=== PATIENT | male | born 1940 | race Caucasian/White ===

== ENCOUNTER → 2021-06-13 13:38 | Outpatient (BNVA) | payer MEDICARE, SELFPAY | PROVIDERS: PCP Internal Medicine; Referring Provider Internal Medicine; Visit Provider Surgery | DX: K40.90 Unilateral inguinal hernia, without obstruction or gangrene, not specified as recurrent (principal); K42.9 Umbilical hernia without obstruction or gangrene | CPT/HCPCS: 99202 ==

== ENCOUNTER 2021-06-29 07:19 | Day surgery (SDC) | payer MEDICARE, SELFPAY ==
[2021-06-23 13:19] VITALS: BMI 26.2
--- NOTE | 2021-06-29 07:52 | HO.ANESPROP2 ---
[facility] Active Problems Active Problems: All Active Problems (Updated 06/23/21 @ 13:18 by Mackenzie Amaro RN) Right inguinal hernia (Acute) Umbilical hernia (Acute) Past Medical History Medical History (Updated 06/23/21 @ 13:18 by Mackenzie Amaro RN) COVID-19 vaccine series completed Depression Elevated cholesterol History of carotid artery dissection HTN (hypertension) Stroke Functional capacity: independent ambulation Family History Family history of problems with anesthesia: No Surgical History Surgical History H/O colonoscopy History of ankle surgery History of back surgery History of open reduction and internal fixation (ORIF) procedure Hx of cataract extraction Hx of left inguinal hernia repair S/p bilateral carotid endarterectomy History of Problems with Anesthesia: No Social History Social History Are you a primary home care coordinator to a significant other at home: No Do you presently have visiting nurse or other home services: No Patient Tobacco Use Status: Former Tobacco user Quit Date: age 50 Tobacco use type: Cigarette Use of substances other than those prescribed or required for medical reasons: No Have you been hit, kicked, punched, or otherwise hurt by someone within the past year? If so, by whom?: No Advance Directives: No Advance Directives Information Provided: Yes Advance Directives on File: No Recently lost weight without trying: No Eating poorly because of decreased appetite: No Nutrition Risks: Surgical patient >75years Poor oral hygiene: No Meds Allergies Allergy/AdvReac Type Severity Reaction Status Date / Time bee pollen [BEE STINGS] Allergy Intermediate PASSES OUT Unverified 06/13/21 13:55 Active Medications: Current Medications Lactated Ringer's (Lr) 1,000 mls @ 100 mls/hr IVCONT .Q10H YOLA Cefazolin Sodium/Dextrose (Ancef) 2 gm in 50 mls @ 100 mls/hr IV PREOP ONE Stop: 06/29/21 08:11 Home Medications Medication Instructions Recorded Confirmed Last Taken Type aspirin 81 mg tablet,delayed 81 mg PO DAILY 06/13/21 06/23/21 06/27/21 History release atenolol 25 mg tablet 25 mg PO DAILY 06/13/21 06/23/21 06/29/21 History cholecalciferol (vitamin D3) 125 125 mcg PO DAILY 06/13/21 06/23/21 Unknown History mcg (5,000 unit) capsule citalopram 20 mg tablet 20 mg PO DAILY 06/13/21 06/23/21 06/29/21 History diphenhydramine HCl 25 mg capsule 25 mg PO BEDTIME PRN 06/13/21 06/23/21 Unknown History (Benadryl) hydrochlorothiazide 25 mg tablet 25 mg PO DAILY 06/13/21 06/23/21 Unknown History krill oil 500 mg capsule 500 mg PO DAILY 06/13/21 06/23/21 Unknown History simvastatin 40 mg tablet 40 mg PO BEDTIME 06/13/21 06/23/21 Unknown History Exam Exam Date and Time: June 29, 2021 0752 Height,Weight and Vital Signs: Height 5 ft 11 in Weight 85.275 kg Assessment and Plan Final Anesthetic Review Family History of Problems with Anesthesia: No History of Problems with Anesthesia: No
[2021-06-29 07:58] VITALS: BP 173/67; PULSE 55; RESP 16; TEMP 36.3; O2SAT 98
[2021-06-29] MEDS: Lactated Ringers 1,000 ML 100 ML IVCONT (08:23)
--- NOTE | 2021-06-29 08:44 | MHC.SHP ---
Pre-Procedural Eval Section A Date of Service: 06/29/21 The patient is an INPATIENT: No Changes since office visit: Yes Patient answered all questions; No Cold of Flu in the past 2 weeks, No New Medical Problems and No Changes in Medication The History & Physical has been completed within 30 days and I have reviewed it.: Yes Section B Chief Complaint: inguinal and umbilical hernia with mesh Allergies: Allergies Allergy/AdvReac Type Severity Reaction Status Date / Time bee pollen [BEE STINGS] Allergy Intermediate PASSES OUT Verified 06/29/21 08:24 Plan Diagnosis/Plan: Unchanged I have reviewed the history and physical and performed a pertinent physical examination on my patient. No changes have occurred unless specified.
--- NOTE | 2021-06-29 10:02 | P.CONAN_ITS ---
[facility] Active Problems Active Problems: All Active Problems (Updated 06/23/21 @ 13:18 by Mackenzie Amaro RN) Right inguinal hernia (Acute) Umbilical hernia (Acute) Past Medical History Medical History (Updated 06/23/21 @ 13:18 by Mackenzie Amaro RN) COVID-19 vaccine series completed Depression Elevated cholesterol History of carotid artery dissection HTN (hypertension) Stroke Functional capacity: independent ambulation Family History Family history of problems with anesthesia: No Surgical History Surgical History H/O colonoscopy History of ankle surgery History of back surgery History of open reduction and internal fixation (ORIF) procedure Hx of cataract extraction Hx of left inguinal hernia repair S/p bilateral carotid endarterectomy History of Problems with Anesthesia: No Social History Social History Are you a primary animal care specialist to a significant other at home: No Do you presently have visiting nurse or other home services: No Patient Tobacco Use Status: Former Tobacco user Quit Date: age 50 Tobacco use type: Cigarette Use of substances other than those prescribed or required for medical reasons: No Have you been hit, kicked, punched, or otherwise hurt by someone within the past year? If so, by whom?: No Advance Directives: No Advance Directives Information Provided: Yes Advance Directives on File: No Recently lost weight without trying: No Eating poorly because of decreased appetite: No Nutrition Risks: Surgical patient >75years Poor oral hygiene: No Meds Allergies Allergy/AdvReac Type Severity Reaction Status Date / Time bee pollen [BEE STINGS] Allergy Intermediate PASSES OUT Verified 06/29/21 08:24 Active Medications: Current Medications Fentanyl (Fentanyl Citrate/Pf 100 Mcg/2 Ml Vial) 25 mcg IVPUSH Q5M PRN; Protocol PRN Reason: Pain, Moderate (Pain Scale 4-6 Lactated Ringer's (Lr) 1,000 mls @ 100 mls/hr IVCONT .Q10H YOLA Last Admin: 06/29/21 08:23 Dose: 100 mls/hr Documented by: Ketorolac Tromethamine (Ketorolac Tromethamine 30 Mg/Ml Vial) 15 mg IVPUSH ONCE ONE Stop: 06/29/21 10:00 Ondansetron HCl (Ondansetron Hcl 4 Mg/2 Ml Vial) 4 mg IVPUSH ONCE PRN PRN Reason: Nausea and Vomiting Oxycodone HCl (Oxycodone Hcl Immed Release 5 Mg Tablet) 5 mg PO ONCE PRN PRN Reason: Pain, Severe (Pain Scale 7-10) Home Medications Medication Instructions Recorded Confirmed Last Taken Type aspirin 81 mg tablet,delayed 81 mg PO DAILY 06/13/21 06/23/21 06/27/21 History release atenolol 25 mg tablet 25 mg PO DAILY 06/13/21 06/23/21 06/29/21 History cholecalciferol (vitamin D3) 125 125 mcg PO DAILY 06/13/21 06/23/21 Unknown History mcg (5,000 unit) capsule citalopram 20 mg tablet 20 mg PO DAILY 06/13/21 06/23/21 06/29/21 History diphenhydramine HCl 25 mg capsule 25 mg PO BEDTIME PRN 06/13/21 06/23/21 Unknown History (Benadryl) hydrochlorothiazide 25 mg tablet 25 mg PO DAILY 06/13/21 06/23/21 Unknown History krill oil 500 mg capsule 500 mg PO DAILY 06/13/21 06/23/21 Unknown History simvastatin 40 mg tablet 40 mg PO BEDTIME 06/13/21 06/23/21 Unknown History Exam Exam Date and Time: June 29, 2021 1002 Height,Weight and Vital Signs: Height 5 ft 11 in Weight 85.275 kg Last Vital Signs Temp 97.3 F 06/29/21 07:58 Pulse 55 06/29/21 07:58 Resp 16 06/29/21 07:58 BP 173/67 H 06/29/21 07:58 Pulse Ox 98 06/29/21 07:58 Airway Mallampati Class: III TM Dist: >3cm Neck ROM: Full Heart: RRR Lungs: CTA Assessment and Plan Final Anesthetic Review Family History of Problems with Anesthesia: No History of Problems with Anesthesia: No Final Preanesthetic Review: No Changes in Pt Med Stat, Meds/Allgs Chart Reviewed, Consent Obtained/Reviewed and Anes Risks/Benef Reviewed Patient Risk: Low Procedure Risk: Low Anesthetic Plan Anesthetic Plan: GA Disposition: Standard PACU
--- NOTE | 2021-06-29 10:19 | W.PM.OPN ---
Operative Note Operative Note Date of Service: 06/29/21 Narrative: Preoperative diagnosis: Right inguinal hernia, umbilical hernia Postoperative diagnosis: Same Procedure: Repair of right inguinal hernia and umbilical hernia with mesh Surgeon: Estevan Matthews MD Cabin Worker: Roxann Story PA-C Anesthesia: General LMA Indications for procedure: 80-year-old male patient presenting with a painful lump in the right groin also noted to have a painful lump in the umbilicus. Both of an increasing in size. Patient is requesting repair of both. Operative findings: Indirect right inguinal hernia, reducible umbilical hernia. Specimen: Hernia sac right inguinal hernia Estimated blood loss: 2 mL Complications: None Procedure details: Patient was brought to the OR and placed in a supine position. After administering general anesthesia the patient's abdomen was prepped with ChloraPrep and draped in a sterile fashion. A surgical time-out was called the consent confirmed. Patient received preoperative antibiotics and Venodyne boots were in place. Local anesthesia consisting of 0.25% Sensorcaine was infiltrated over the right inguinal ligament. Incision was then made over the ligament carried out through subcutaneous tissue, past Ara's fashion up to the external oblique aponeurosis. Additional local was infiltrated below the aponeurosis. External oblique aponeurosis was then incised with a scalpel wide with the Metzenbaum scissors. Spermatic cord was then dissected free from the surrounding inguinal canal and retracted with a [place] drain. A small direct inguinal hernia was identified and reduced. Fibers of the cremasteric muscle were then in a small indirect hernia was also identified. The sac was dissected down to the internal ring. The sac was opened and contents reduced. Sac was then ligated with a 0 Polysorb suture. Sac was then excised and sent to pathology for further examination. Attention was then directed to the direct floor. Fibers of the internal oblique and transversalis aponeurosis were then incised. Preperitoneal space was then entered. This was then widened with an open Ray-Sharon sponge. A large PHS mesh was obtained in the circular underlay deployed within the preperitoneal space. The overlay was then secured to the pubic tubercle, conjoined tendon, and shelving edge using interrupted 0 Polysorb sutures. A slit was made in the mesh at the internal ring in the mesh wrapped around the spermatic cord at the internal ring. This was then secured to the shelving edge using a 0 Polysorb suture. The wrap was tightened up to allow passage only the index finger tip. Wounds were then irrigated with saline solution. 5.5 mL of Zenrelef was then infiltrated over the mesh. The external oblique aponeurosis was then closed using a running 2 0 Polysorb suture. An additional 5 mL of Zenrelef was then applied. Ara's fascia and dermis were then reapproximated using interrupted 3-0 Polysorb sutures skin was then closed using a running subcuticular 4-0 Polysorb suture. Attention was then directed to the umbilicus, where a curvilinear incision was made over the umbilicus oriented transversely. This was carried out through subcutaneous tissue and up to the hernia sac. The hernia sac was then dissected off the umbilical skin. The sac was dissected circumferentially along the fascial edge and reduced into the abdominal cavity. A preperitoneal space was then bluntly dissected. A medium circular Ventralex mesh was then obtained in the poised within the preperitoneal space. This was secured to the 4 quadrants using a [id number] 1. Tycron suture. The fascia was then closed over the mesh using [id number] Tycron sutures. Wounds were then irrigated with saline solution. 1 mL of Zenrelef was then applied over the fascia. Umbilical skin was reattached to the fascia using a 3-0 Polysorb suture. Dermis was reapproximated using interrupted 3-0 Polysorb sutures. Skin was closed using a running subcuticular 4-0 Polysorb suture. Sterile dressings consisting of Steri-Strips, 2 x 2 gauze, and Tegaderm were then applied. The patient tolerated the procedure well. Sponge, instrument, and needle counts reported as correct. The patient was transferred to PACU in stable condition.
[2021-06-29 10:28] VITALS: BP 128/48; PULSE 61; RESP 16; TEMP 36.8; O2SAT 96
[2021-06-29 10:33] VITALS: BP 91/63; PULSE 56; RESP 16; O2SAT 96
[2021-06-29 10:38] VITALS: BP 132/45; PULSE 57; RESP 16; O2SAT 96
[2021-06-29 10:43] VITALS: BP 111/63; PULSE 58; RESP 16; O2SAT 96
[2021-06-29 10:58] VITALS: BP 151/70; PULSE 58; RESP 16; TEMP 36.4; O2SAT 95
== END 2021-06-29 11:45 | disposition home or self-care (01) ==
PROVIDERS: PCP Internal Medicine; Visit Provider Surgery
PROC: (CPT 49505; principal; 2021-06-29 09:10)
PROC: (CPT 49505; 2021-06-29 09:10)
DX: K40.90 Unilateral inguinal hernia, without obstruction or gangrene, not specified as recurrent (principal); K42.9 Umbilical hernia without obstruction or gangrene; Z86.73 Personal history of transient ischemic attack (TIA), and cerebral infarction without residual deficits; Z79.82 Long term (current) use of aspirin; Z98.62 Peripheral vascular angioplasty status; Z79.899 Other long term (current) drug therapy; Z87.891 Personal history of nicotine dependence
CPT/HCPCS: 49505; 49585; 88302; C1781; C9399; J0690; J1100; J2250; J2405; J3010

== ENCOUNTER → 2021-07-08 09:48 | Outpatient (BNVA) | payer MEDICARE, SELFPAY | PROVIDERS: PCP Internal Medicine; Referring Provider Internal Medicine; Visit Provider Surgery | DX: Z48.815 Encounter for surgical aftercare following surgery on the digestive system (principal); Z87.19 Personal history of other diseases of the digestive system | CPT/HCPCS: 99212 ==

== ENCOUNTER 2022-12-29 08:45 | Outpatient (AMB) | payer MEDICARE, SELFPAY ==
[2022-12-29 08:48] VITALS: BP 134/58; PULSE 61; O2SAT 96; BMI 26.5
--- NOTE | 2022-12-29 08:48 | A.OFFPC_ITS ---
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 Allergies bee pollen [BEE STINGS] Allergy (Intermediate, Verified 12/29/22 08:53) PASSES OUT Medication List - Last Reconciled 12/29/22 by Olivia Moon MD aspirin 81 mg PO DAILY atenolol 25 mg PO DAILY cholecalciferol (vitamin D3) 125 mcg PO DAILY citalopram 20 mg PO DAILY diphenhydramine HCl (Benadryl) 25 mg PO BEDTIME PRN hydrochlorothiazide 25 mg PO DAILY krill oil 500 mg PO DAILY simvastatin 40 mg PO BEDTIME Tobacco use date assessed: 12/29/22 Fall risk assessment: No Falls in past year Last assessed Fall Risk: 12/29/22 Dental Screening Dental Screen Date: 12/29/22 Did you have a dental visit in the last 12 months?: Yes Did you have a dental problem in the last 6 months where you did not have access to dental care?: No Was dental information given to patient?: Patient has dentist 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 Past medical history includes hypertension hyperlipidemia. [facility] and has an appointment in 1 month for fasting blood work and visit. [facility] Medical History (Updated 12/29/22 @ 09:09 by Olivia Moon MD) COVID-19 vaccine series completed Depression Elevated cholesterol HTN (hypertension) History of carotid artery dissection Stroke Surgical History (Updated 12/29/22 @ 09:09 by Olivia Moon MD) Hx of left inguinal hernia repair H/O colonoscopy Hx of cataract extraction History of open reduction and internal fixation (ORIF) procedure S/p bilateral carotid endarterectomy History of back surgery History of ankle surgery Family History (Updated 12/29/22 @ 08:56 by Audelia Bautista Thelma) Father No problems noted. Mother No problems noted. Social History Housing: House Are you a primary care services manager to a significant other at home: No Do you presently have visiting nurse or other home services: No Patient Tobacco Use Status: Former Tobacco user Quit Date: age 50 Tobacco use type: Cigarette e-Cigarette/Vaping Use: Never Used Current occupational status: retired Cognitive needs: No Hearing needs: No Vision needs: Yes Questionnaire PHQ-9 Over the last 2 weeks, how often have you been bothered by any of the following problems? 1. Little interest or pleasure in doing things: not at all 2. Feeling down, depressed, or hopeless: not at all 3. Trouble falling or staying asleep, or sleeping too much: not at all 4. Feeling tired or having little energy: not at all 5. Poor appetite or overeating: not at all 6. Feeling bad about yourself - or that you are a failure or have let yourself or your family down: not at all 7. Trouble concentrating on things, such as reading the newspaper or watching television: not at all 8. Moving or speaking so slowly that other people could have noticed. Or the opposite - being so fidgety or restless that you have been moving around a lot more than usual: not at all 9. Thoughts that you would be better off or of hurting yourself in some way : not at all Total score: 0 Depression Screening Interpretation: Negative Depression Screening Done: Yes Source: Developed by Drs. Nelson Campbell, Dina Booker, Chris Nash and colleagues, with an educational flaquita from [employer]. Thrive Questionnaire Date Thrive assessed: 12/29/22 I am a: Patient What is your living situation today?: I have a steady place to live Within the past 12 months, did the food you bought not last and you didn't have the money to get more?: Never true Within the past 12 months, did you worry whether your food would run out before you got money to buy more?: Never true Do you have trouble paying for medicines?: No Do you have trouble getting transportation to medical appointments?: No Do you have trouble paying your heating and electricity bill?: No Do you have trouble taking care of your child, family member or friend?: No Do you have trouble with day-to-day activities such as bathing, preparing meals, shopping, managing finances, etc.?: No Are you currently unemployed and looking for a job?: No Are you interested in more education?: No Please select the resources that you would like help with: None AUDIT C Alcohol Use Questionnaire (AUDIT-C) 1. How often do you have a drink containing alcohol?: 4 or more times a week 2. How many drinks containing alcohol do you have on a typical day when you are drinking?: 1 or 2 3. How often do you have six or more drinks on one occasion?: Never Total Score: 4 CAMI-7 AMB Questionnaire CAMI-7 Date CAMI - 7 assessed: 12/29/22 Feeling nervous, anxious, or on edge: 0 = Not at all Not being able to stop or control worryin = Not at all Worrying too much about different things: 0 = Not at all Trouble relaxin = Not at all Being so restless that it is hard to sit still: 0 = Not at all Becoming easily annoyed or irritable: 0 = Not at all Feeling afraid as if something awful might happen: 0 = Not at all Total CAMI-7 score (0-4 normal; 5-9 mild; 10-14 moderate; 15-21 severe): 0 Source: Developed by Drs. Nelson Campbell, Dina Booker, Chris Nash and colleagues, with an educational flaquita from [employer]. Review of Systems Const All systems reviewed & are unremarkable except as noted in HPI and below Reports no additional complaints Eyes Reports no additional complaints ENT Reports no additional complaints Card Reports no additional complaints Resp Reports no additional complaints GI Reports no additional complaints Reports no additional complaints Musc Reports no additional complaints Physical exam (Primary Care) Vital Signs: Last Vital Signs Pulse 61 12/29/22 08:48 BP 134/58 L 12/29/22 08:48 Pulse Ox 96 12/29/22 08:48 Oxygen Delivery Method Room Air 12/29/22 08:48 BMI result Body Mass Index 26.5 Tobacco/Smoking Status: Tobacco use Status Tobacco use date assessed 12/29/22 12/29/22 08:59 Patient Tobacco Use Status Former Tobacco user 12/29/22 08:51 Tobacco use type Cigarette 12/29/22 08:51 e-Cigarette/Vaping Use Never Used 12/29/22 08:59 PHQ-9: PHQ-9 Score PHQ-9: Total score 0 12/29/22 08:59 Depression Screening Interpretation: Negative Thrive Assessment: Date of Thrive Assessment Date Thrive assessed 12/29/22 12/29/22 08:59 Const General: no acute distress HENMT Head: Yes normal to inspection Ears: hearing grossly normal bilaterally Face and sinus: Yes normal facial exam Throat: Yes posterior oropharynx normal Neck Neck: Yes supple Resp Effort & Inspection: normal respiratory effort Auscultation: clear to auscultation bilaterally Cardio Rhythm: regular rhythm Heart sounds: S1 normal heart sound present and S2 normal heart sound present GI Inspection: Yes normal to inspection Palpation (GI): Soft to palpation Percussion: Yes normal to percussion Auscultation: normal bowel sounds Assessment and Plan Assessment & Plan (1) Status post carotid endarterectomy: Comment: 2011Dr. Barreto Code(s): Z98.890 - Other specified postprocedural states Plan: Follow-up with [facility] annually (2) HTN (hypertension): Code(s): I10 - Essential (primary) hypertension Plan: Continue current medications (3) Elevated cholesterol: Code(s): E78.00 - Pure hypercholesterolemia, unspecified Plan: Continue simvastatin, follow-up in 6 months with a fasting labs before (4) Screening for colon cancer: Comment: negative Cologuard 2021 by [place] Code(s): Z12.11 - Encounter for screening for malignant neoplasm of colon Orders: Orders Complete Blood Count Auto Diff 6 Months E78.00 - Pure hypercholesterolemia, unspecified, I10 - Essential (primary) hypertension Vitamin D 25-OH Total 6 Months E78.00 - Pure hypercholesterolemia, unspecified, I10 - Essential (primary) hypertension Comprehensive [place]. Panel Fast 6 Months E78.00 - Pure hypercholesterolemia, unspecified, I10 - Essential (primary) hypertension Lipid Panel 6 Months E78.00 - Pure hypercholesterolemia, unspecified, I10 - Essential (primary) hypertension PSA,Total (Free>4and<10) 6 Months E78.00 - Pure hypercholesterolemia, unspecified, I10 - Essential (primary) hypertension Coding Level of Care Code New Pt Level 4 (15345) Diagnoses Status post carotid endarterectomy Z98.890 HTN (hypertension) I10 Elevated cholesterol E78.00 Screening for colon cancer Z12.11
== END 2022-12-29 10:20 | disposition home or self-care (01) ==
PROVIDERS: Visit Provider Internal Medicine
DX: Z98.890 Other specified postprocedural states (principal); I10 Essential (primary) hypertension; E78.00 Pure hypercholesterolemia, unspecified; Z12.11 Encounter for screening for malignant neoplasm of colon
CPT/HCPCS: 99204

== ENCOUNTER 2023-04-06 09:10 | Outpatient (REF) | payer MEDICARE, SELFPAY ==
[2023-04-06 11:45] LABS: MANUAL DIFF FLAG NO
[2023-04-06 11:47] LABS: Basophils Absolute Auto 0.1 X10*3/uL (0.0-0.2); Basophils Percent Auto 0.9 % (0-2); Eosinophils Absolute Auto 0.2 X10*3/uL (0.0-0.4); Eosinophils Percent Auto 3.6 % (0-4); Hematocrit 40.7 % (42.0-52.0); Hemoglobin 14.3 g/dl (14.0-18.0); Imm Gran Abs Auto 0.03 X10*3/uL (0.00-0.03); Imm Gran Pct Auto 0.5 % (0.0-0.4); Lymphocytes Absolute Auto 1.7 X10*3/uL (1.2-4.9); Lymphocytes Percent Auto 26.3 % (20-40); Mean Corpuscular HGB Conc 35.1 g/dl (31.0-36.0); Mean Corpuscular Hemoglobin 33.3 pg (27.0-33.0); Mean Corpuscular Volume 94.7 fL (80.0-98.0); Mean Platelet Volume 10.6 fL (9.4-12.4); Monocytes Absolute Auto 0.7 X10*3/uL (0.1-1.2); Monocytes Percent Auto 10.9 % (2-11); Neutrophils Absolute Auto 3.7 x10*3/uL (2.0-8.3); Neutrophils Percent Auto 57.8 % (45-73); Platelet Count 179 X10*3/uL (160-400); Red Cell Distribution Width 12.1 % (11.0-16.0); White Blood Count 6.3 X10*3/uL (4.8-10.8)
[2023-04-06 12:21] LABS: Alanine Aminotransferase 33 U/L (0-40); Alkaline Phosphatase 81 U/L (39-117); Anion Gap 12 (12-20); Aspartate Amino Transferase 34 U/L (5-37); Bilirubin Total 0.9 mg/dL (0.0-1.0); Blood Urea Nitrogen 22 mg/dL (9-16); Calcium 9.1 mg/dL (8.4-10.2); Carbon Dioxide 28 mmol/L (22-29); Chloride 100 mmol/L (96-108); Cholesterol 140 mg/dL (<200); Estimated Glomerular Filt Rate > 60; Glucose Fasting 91 mg/dL (60-99); HDL Cholesterol 55 mg/dL (>40); LDL Cholesterol Calculated 62 mg/dL (<100); Potassium 3.6 mmol/L (3.3-5.1); Sodium 136 mmol/L (135-145); Total Protein 7.2 g/dL (6.5-8.0); Triglycerides 119 mg/dL (<150)
== END 2023-04-06 09:11 | disposition home or self-care (01) ==
LOC: HO.HMGCLDS 09:10
PROVIDERS: PCP Internal Medicine; Visit Provider Internal Medicine
DX: I10 Essential (primary) hypertension (principal); E78.00 Pure hypercholesterolemia, unspecified; Z98.890 Other specified postprocedural states
CPT/HCPCS: 36415; 80053; 80061; 85025

== ENCOUNTER 2023-04-09 13:07 | Outpatient (AMB) | payer MEDICARE, SELFPAY ==
[2023-04-09 13:54] VITALS: BP 136/64; PULSE 53; O2SAT 97; BMI 26.2
--- NOTE | 2023-04-09 13:54 | MHC.PC.OV ---
Vital Signs 04/09/23 13:54 Height 5 ft 11 in Weight 188 lb BMI 26.2 BP 136/64 Blood Pressure Location Rt brachial Position Sitting Pulse 53 Pulse Source Pulse Oximeter Pulse Oximetry (%) 97 Oxygen Delivery Method Room Air Intake Visit Reasons: [facility], right rotator cuff repair Intake Note: Pt is here today for a pre op visit. Pt is having R shoulder surgery for rotator cuff repair on 04/24/23 at [facility]. Allergies bee pollen [BEE STINGS] Allergy (Intermediate, Verified 04/09/23 14:04) PASSES OUT Medication List - Last Reconciled 04/09/23 by Olivia Moon MD aspirin 81 mg PO DAILY atenolol 25 mg PO DAILY cholecalciferol (vitamin D3) 125 mcg PO DAILY citalopram 20 mg PO DAILY diphenhydramine HCl (Benadryl) 25 mg PO BEDTIME PRN hydrochlorothiazide 25 mg PO DAILY krill oil 500 mg PO DAILY simvastatin 40 mg PO BEDTIME Tobacco use date assessed: 04/09/23 Fall risk assessment: No Falls in past year Last assessed Fall Risk: 04/09/23 Dental Screening Dental Screen Date: 04/09/23 Did you have a dental visit in the last 12 months?: Yes Did you have a dental problem in the last 6 months where you did not have access to dental care?: No Was dental information given to patient?: Patient has dentist HPI [facility], right rotator cuff repair HPI Details Pt presents for preop for R shoulder surgery. HTN and hyperlipid, stable on meds. Patient exercises on elliptical 5 times a week and denies exercise induced chest pain shortness for breath or palpitations. [facility] Medical History (Updated 04/09/23 @ 15:15 by Olivia Moon MD) COVID-19 vaccine series completed Depression Elevated cholesterol HTN (hypertension) History of carotid artery dissection Stroke Surgical History (Updated 12/29/22 @ 09:09 by Olivia Moon MD) Hx of left inguinal hernia repair H/O colonoscopy Hx of cataract extraction History of open reduction and internal fixation (ORIF) procedure S/p bilateral carotid endarterectomy History of back surgery History of ankle surgery Family History (Updated 12/29/22 @ 08:56 by Audelia Bautista [facility]) Father No problems noted. Mother No problems noted. Social History Housing: House Are you a primary career transition specialist to a significant other at home: No Do you presently have visiting nurse or other home services: No Patient Tobacco Use Status: Former Tobacco user Quit Date: age 50 Tobacco use type: Cigarette e-Cigarette/Vaping Use: Never Used Current occupational status: retired Cognitive needs: No Hearing needs: No Vision needs: Yes Questionnaire Thrive Questionnaire Date Thrive assessed: 12/29/22 AUDIT C Alcohol Use Questionnaire (AUDIT-C) 1. How often do you have a drink containing alcohol?: 4 or more times a week 2. How many drinks containing alcohol do you have on a typical day when you are drinking?: 1 or 2 3. How often do you have six or more drinks on one occasion?: Never Total Score: 4 CAMI-7 AMB Questionnaire CAMI-7 Date CAMI - 7 assessed: 12/29/22 Source: Developed by Drs. Nelson Campbell, Dina Booker, Chris Nash and colleagues, with an educational flaquita from [employer]. Review of Systems Const All systems reviewed & are unremarkable except as noted in HPI and below Reports no additional complaints Eyes Reports no additional complaints ENT Reports no additional complaints Card Reports no additional complaints Resp Reports no additional complaints GI Reports no additional complaints Reports no additional complaints Physical exam (Primary Care) Vital Signs: Last Vital Signs Pulse 53 04/09/23 13:54 BP 136/64 04/09/23 13:54 Pulse Ox 97 04/09/23 13:54 Oxygen Delivery Method Room Air 04/09/23 13:54 BMI result Body Mass Index 26.2 Tobacco/Smoking Status: Tobacco use Status Tobacco use date assessed 04/09/23 04/09/23 14:05 Patient Tobacco Use Status Former Tobacco user 04/09/23 14:05 Tobacco use type Cigarette 04/09/23 13:55 e-Cigarette/Vaping Use Never Used 04/09/23 13:55 Thrive Assessment: Date of Thrive Assessment Date Thrive assessed 12/29/22 04/09/23 13:55 Const General: no acute distress HENMT Head: Yes normal to inspection General nose exam: Normal external nose present Eyes General: appearance normal, both eyes and all related structures Neck Neck: Yes no lymphadenopathy and Yes supple Resp Effort & Inspection: normal respiratory effort Auscultation: clear to auscultation bilaterally Cardio Rhythm: regular rhythm Heart sounds: S1 normal heart sound present and S2 normal heart sound present GI Inspection: Yes normal to inspection Palpation (GI): Soft to palpation Percussion: Yes normal to percussion Auscultation: normal bowel sounds Extrem General: Yes no clubbing, cyanosis or edema Assessment and Plan Assessment & Plan (1) HTN (hypertension): Code(s): I10 - Essential (primary) hypertension Plan: Continue current medications EKG showed normal sinus rhythm bradycardia at 51, with first-degree AV block no ST-T changes. (2) Rotator cuff tear arthropathy of right shoulder: Code(s): M75.101 - Unspecified rotator cuff tear or rupture of right shoulder, not specified as traumatic; M12.811 - Other specific arthropathies, not elsewhere classified, right shoulder Plan: Patient is medically cleared for right shoulder surgery. Orders: Orders AMB EKG-In Office Today I10 - Essential (primary) hypertension, Z98.890 - Other specified postprocedural states Medications: New atenolol 25 mg PO DAILY 90 tabs 3RF citalopram 20 mg PO DAILY 90 tabs 3RF Coding Level of Care Code Est Pt Level 3 (20363) Diagnoses HTN (hypertension) I10 Rotator cuff tear arthropathy of right shoulder M75.101; M12.811
== END 2023-04-09 15:16 | disposition home or self-care (01) ==
PROVIDERS: PCP Internal Medicine; Visit Provider Internal Medicine
DX: I10 Essential (primary) hypertension (principal); M75.101 Unspecified rotator cuff tear or rupture of right shoulder, not specified as traumatic; M12.811 Other specific arthropathies, not elsewhere classified, right shoulder
CPT/HCPCS: 99213

== ENCOUNTER 2023-05-17 13:37 | Outpatient (REF) | payer MEDICARE, SELFPAY ==
[2023-05-17 16:25] LABS: Anion Gap 15 (12-20); Blood Urea Nitrogen 19 mg/dL (9-16); Calcium 9.3 mg/dL (8.4-10.2); Carbon Dioxide 25 mmol/L (22-29); Chloride 102 mmol/L (96-108); Estimated Glomerular Filt Rate > 60; Glucose Random 89 mg/dL (60-115); Potassium 4.1 mmol/L (3.3-5.1); Sodium 138 mmol/L (135-145)
== END 2023-05-17 13:38 | disposition home or self-care (01) ==
LOC: HO.HMGCLDS 13:37
PROVIDERS: PCP Internal Medicine; Visit Provider Internal Medicine
DX: R06.9 Unspecified abnormalities of breathing (principal)
CPT/HCPCS: 36415; 80048

== ENCOUNTER 2023-06-22 07:41 | Outpatient (REF) | payer MEDICARE, SELFPAY ==
[2023-06-22 10:33] LABS: MANUAL DIFF FLAG NO
[2023-06-22 10:47] LABS: Basophils Absolute Auto 0.1 X10*3/uL (0.0-0.2); Basophils Percent Auto 0.9 % (0-2); Eosinophils Absolute Auto 0.3 X10*3/uL (0.0-0.4); Eosinophils Percent Auto 4.1 % (0-4); Hematocrit 42.4 % (42.0-52.0); Hemoglobin 14.1 g/dl (14.0-18.0); Imm Gran Abs Auto 0.03 X10*3/uL (0.00-0.03); Imm Gran Pct Auto 0.5 % (0.0-0.4); Lymphocytes Absolute Auto 1.8 X10*3/uL (1.2-4.9); Lymphocytes Percent Auto 28.5 % (20-40); Mean Corpuscular HGB Conc 33.3 g/dl (31.0-36.0); Mean Corpuscular Hemoglobin 32.9 pg (27.0-33.0); Mean Corpuscular Volume 99.1 fL (80.0-98.0); Mean Platelet Volume 10.5 fL (9.4-12.4); Monocytes Absolute Auto 0.8 X10*3/uL (0.1-1.2); Monocytes Percent Auto 11.8 % (2-11); Neutrophils Absolute Auto 3.5 x10*3/uL (2.0-8.3); Neutrophils Percent Auto 54.2 % (45-73); Platelet Count 198 X10*3/uL (160-400); Red Blood Count 4.28 X10*6/uL (4.60-5.80); Red Cell Distribution Width 11.9 % (11.0-16.0); White Blood Count 6.4 X10*3/uL (4.8-10.8)
[2023-06-22 11:23] LABS: PSA,Total (Free>4and<10) 6.88 ng/mL (0.00-4.00)
[2023-06-22 12:11] LABS: Alanine Aminotransferase 26 U/L (0-40); Alkaline Phosphatase 107 U/L (39-117); Anion Gap 12 (12-20); Aspartate Amino Transferase 31 U/L (5-37); Bilirubin Total 0.7 mg/dL (0.0-1.0); Blood Urea Nitrogen 21 mg/dL (9-16); Calcium 9.5 mg/dL (8.4-10.2); Carbon Dioxide 30 mmol/L (22-29); Chloride 100 mmol/L (96-108); Cholesterol 149 mg/dL (<200); Estimated Glomerular Filt Rate 58; Glucose Fasting 86 mg/dL (60-99); HDL Cholesterol 47 mg/dL (>40); LDL Cholesterol Calculated 71 mg/dL (<100); Potassium 3.6 mmol/L (3.3-5.1); Sodium 138 mmol/L (135-145); Total Protein 7.4 g/dL (6.5-8.0); Triglycerides 157 mg/dL (<150); Vitamin D 25-OH Total 99.4 ng/mL (>30)
[2023-06-25 17:23] LABS: Free Prostate Spec Ag 1.4 ng/mL; Percent Free Prostate Spec Ag 22 % (calc) (>25); Prostate Specific Ag Total 6.4 ng/mL (< OR = 4.0)
== END 2023-06-22 07:42 | disposition home or self-care (01) ==
LOC: HO.HMGCLDS 07:41
PROVIDERS: PCP Internal Medicine; Visit Provider Internal Medicine
DX: Z12.5 Encounter for screening for malignant neoplasm of prostate (principal); E78.00 Pure hypercholesterolemia, unspecified; I10 Essential (primary) hypertension
CPT/HCPCS: 36415; 80053; 80061; 82306; 84153; 84154; 85025

== ENCOUNTER 2023-06-28 09:40 | Outpatient (AMB) | payer MEDICARE, SELFPAY ==
--- NOTE | 2023-06-28 09:56 | MHC.PC.OV ---
Vital Signs 06/28/23 09:57 Height 5 ft 11 in Weight 182 lb BMI 25.4 BP 118/64 Blood Pressure Location Lt brachial Position Sitting Pulse 53 Pulse Source Pulse Oximeter Pulse Oximetry (%) 99 Oxygen Delivery Method Room Air Intake Visit Reasons: 6 month follow up Intake Note: Pt is here today for 6 months follow up visit. Allergies bee pollen [BEE STINGS] Allergy (Intermediate, Verified 06/28/23 10:03) PASSES OUT Medication List - Last Reconciled 06/28/23 by Olivia Moon MD aspirin 81 mg PO DAILY atenolol 25 mg PO DAILY cholecalciferol (vitamin D3) 125 mcg PO DAILY citalopram 20 mg PO DAILY diphenhydramine HCl (Benadryl) 25 mg PO BEDTIME PRN furosemide (Lasix) 20 mg PO DAILY hydrochlorothiazide 25 mg PO DAILY krill oil 500 mg PO DAILY simvastatin 40 mg PO BEDTIME Tobacco use date assessed: 04/09/23 Dental Screening Dental Screen Date: 04/09/23 HPI 6 month follow up HPI Details Pt presents for f/u HTN, hyperlipid, stable on meds. Patient is recovering from right shoulder rotator cuff surgery and doing well. [facility] Medical History (Updated 06/28/23 @ 10:28 by Olivia Moon MD) COVID-19 vaccine series completed Depression Elevated cholesterol HTN (hypertension) History of carotid artery dissection Stroke Surgical History (Updated 06/28/23 @ 10:03 by RICHAR Katz) H/O rotator cuff surgery Hx of left inguinal hernia repair H/O colonoscopy Hx of cataract extraction History of open reduction and internal fixation (ORIF) procedure S/p bilateral carotid endarterectomy History of back surgery History of ankle surgery Family History Father No problems noted. Mother No problems noted. Social History Housing: House Are you a primary home health aide caregiver to a significant other at home: No Do you presently have visiting nurse or other home services: No Patient Tobacco Use Status: Former Tobacco user Quit Date: age 50 Tobacco use type: Cigarette e-Cigarette/Vaping Use: Never Used service: Yes Current occupational status: retired Cognitive needs: No Hearing needs: No Vision needs: Yes Questionnaire Thrive Questionnaire Date Thrive assessed: 12/29/22 CAMI-7 AMB Questionnaire CAMI-7 Date CAMI - 7 assessed: 12/29/22 Source: Developed by Drs. Nelson Campbell, Dina Booker, Chris Nash and colleagues, with an educational flaquita from [employer]. Review of Systems Const All systems reviewed & are unremarkable except as noted in HPI and below Eyes Reports no additional complaints ENT Reports no additional complaints Card Reports no additional complaints Resp Reports no additional complaints GI Reports no additional complaints Reports no additional complaints Physical exam (Primary Care) Vital Signs: Last Vital Signs Pulse 53 06/28/23 09:57 BP 118/64 06/28/23 09:57 Pulse Ox 99 06/28/23 09:57 Oxygen Delivery Method Room Air 06/28/23 09:57 BMI result Body Mass Index 25.4 Tobacco/Smoking Status: Tobacco use Status Tobacco use date assessed 04/09/23 06/28/23 10:04 Patient Tobacco Use Status Former Tobacco user 06/28/23 10:04 Tobacco use type Cigarette 06/28/23 10:04 e-Cigarette/Vaping Use Never Used 06/28/23 10:04 Thrive Assessment: Date of Thrive Assessment Date Thrive assessed 12/29/22 06/28/23 10:04 Const General: no acute distress HENMT Head: Yes normal to inspection Face and sinus: Yes normal facial exam Mouth: Normal oral and palatal mucosa present Eyes General: appearance normal, both eyes and all related structures Cardio Rhythm: regular rhythm Heart sounds: S1 normal heart sound present and S2 normal heart sound present GI Inspection: Yes normal to inspection Palpation (GI): Soft to palpation Percussion: Yes normal to percussion Auscultation: normal bowel sounds Assessment and Plan Assessment & Plan (1) Rotator cuff tear arthropathy of right shoulder: Comment: s/p surgery [facility] 04/28 Code(s): M75.101 - Unspecified rotator cuff tear or rupture of right shoulder, not specified as traumatic; M12.811 - Other specific arthropathies, not elsewhere classified, right shoulder Plan: cont PT (2) Elevated PSA, less than 10 ng/ml: Comment: 6.2 asymptomatic,06/26 will monitor q 6 months Code(s): R97.20 - Elevated prostate specific antigen [PSA] (3) Elevated cholesterol: Code(s): E78.00 - Pure hypercholesterolemia, unspecified Plan: cont statin (4) HTN (hypertension): Code(s): I10 - Essential (primary) hypertension Plan: cont meds Orders: Orders Comprehensive [place]. Panel Fast 6 Months E78.00 - Pure hypercholesterolemia, unspecified, I10 - Essential (primary) hypertension, R97.20 - Elevated prostate specific antigen [PSA] PSA,Total (Free>4and<10) 6 Months E78.00 - Pure hypercholesterolemia, unspecified, I10 - Essential (primary) hypertension, R97.20 - Elevated prostate specific antigen [PSA] Lipid Panel 6 Months E78.00 - Pure hypercholesterolemia, unspecified, I10 - Essential (primary) hypertension, R97.20 - Elevated prostate specific antigen [PSA] Coding Level of Care Code Est Pt Level 4 (73182) Diagnoses Rotator cuff tear arthropathy of right shoulder M75.101; M12.811 Elevated PSA, less than 10 ng/ml R97.20 Elevated cholesterol E78.00 HTN (hypertension) I10
[2023-06-28 09:57] VITALS: BP 118/64; PULSE 53; O2SAT 99; BMI 25.4
== END 2023-06-28 10:44 | disposition home or self-care (01) ==
PROVIDERS: PCP Internal Medicine; Visit Provider Internal Medicine
DX: M75.101 Unspecified rotator cuff tear or rupture of right shoulder, not specified as traumatic (principal); M12.811 Other specific arthropathies, not elsewhere classified, right shoulder; R97.20 Elevated prostate specific antigen [PSA]; E78.00 Pure hypercholesterolemia, unspecified; I10 Essential (primary) hypertension
CPT/HCPCS: 99214

== ENCOUNTER 2023-08-17 09:13 | Outpatient (AMB) | payer MEDICARE, SELFPAY ==
[2023-08-17 09:13] VITALS: BP 122/70; PULSE 57; TEMP 36.3; O2SAT 95; BMI 25.1
--- NOTE | 2023-08-17 09:13 | AM.OFFWIN_ITS ---
Intake Vital Signs 08/17/23 09:13 Height 5 ft 11 in Weight 180 lb BMI 25.1 BP 122/70 Blood Pressure Location Lt brachial Position Sitting Pulse 57 Pulse Source Pulse Oximeter Temp 97.3 F Temp Source Temporal Artery Scan Pulse Oximetry (%) 95 Oxygen Delivery Method Room Air Intake Visit Reasons: EP ?infected left toe Intake Note: pt is here today for infection lft toe started 1 week ago Patient Tobacco Use Status: Former Tobacco user Allergies bee pollen [BEE STINGS] Allergy (Intermediate, Verified 08/17/23 09:18) PASSES OUT Do you need a note to return to daycare/school/sports/work: No HPI HPI Comments History of Present Illness Details This is an 83-year-old male who presented to the walk-in clinic complaining of swelling/erythema of his left 2nd toe. He states this has been going on for approximately 1 week although has been worsening. Patient has been soaking in Epsom salts at home without significant relief. He denies any fever/chills. [facility] Medical History (Updated 06/28/23 @ 10:28 by Olivia Moon MD) COVID-19 vaccine series completed Depression Elevated cholesterol HTN (hypertension) History of carotid artery dissection Stroke Surgical History (Updated 06/28/23 @ 10:03 by RICHAR Katz) H/O rotator cuff surgery Hx of left inguinal hernia repair H/O colonoscopy Hx of cataract extraction History of open reduction and internal fixation (ORIF) procedure S/p bilateral carotid endarterectomy History of back surgery History of ankle surgery Family History Father No problems noted. Mother No problems noted. Social History Housing: House Are you a primary skin care technician to a significant other at home: No Do you presently have visiting nurse or other home services: No Patient Tobacco Use Status: Former Tobacco user Tobacco use type: Cigarette e-Cigarette/Vaping Use: Never Used service: Yes Current occupational status: retired Cognitive needs: No Hearing needs: No Vision needs: Yes Review of Systems Const All systems reviewed & are unremarkable except as noted in HPI and below Reports no additional complaints Eyes Reports no additional complaints ENT Reports no additional complaints Card Reports no additional complaints Resp Reports no additional complaints GI Reports no additional complaints Reports no additional complaints Musc Reports no additional complaints Skin/Breast Reports system reviewed and no additional complaints, except as documented Neuro Reports no additional complaints Psych Reports no additional complaints Endo Reports no additional complaints Reynaldo/Lymph Reports no additional complaints Aller/Immun Reports no additional complaints Physical Exam Vital Signs: Last Vital Signs Temp 97.3 F 08/17/23 09:13 Pulse 57 08/17/23 09:13 BP 122/70 08/17/23 09:13 Pulse Ox 95 08/17/23 09:13 Oxygen Delivery Method Room Air 08/17/23 09:13 BMI result Body Mass Index 25.1 Const Other: Vital signs reviewed. Constitutional: Non-toxic appearing. No acute distress. Well-developed and well-nourished. HEENT: Normocephalic and atraumatic. EOMI. Skin: Warm and dry. There is erythema of the left 2nd toe. There is no fluctuance or induration. There is no purulence drainage. Neck: Full and painless range of motion. No cervical lymphadenopathy. Cardio: Regular rate. No lower extremity edema. Pulmonary: No respiratory distress. No accessory muscle usage. Musculoskeletal: Normal range of motion in joints throughout the body. No deformity or other signs of injury. There is swelling of the left 2nd toe although patient has good range of motion of the left 2nd toe. Neuro: Alert and oriented x4. Cranial nerves 2-12 grossly intact. No focal de ficits appreciated. Psych: Normal mood and affect. Assessment & Plan Assessment & Plan (1) Cellulitis of toe of left foot: Code(s): L03.032 - Cellulitis of left toe Plan: This is an 83-year-old male who presented to the walk-in clinic complaining of swelling/erythema his left 2nd. On physical examination, there is erythema and swelling of the left 2nd toe but he is good range of motion. History and physical most consistent with cellulitis of the left 2nd toe. There is no lymphangitic streaking. There is no fluctuance/induration to suggest abscess/fluid collection. There is no paronychia. Patient was given a prescription for p.o. cephalexin 500 mg 4 times daily x7 days. Patient was advised to follow-up here or proceed to the emergency room if he were to develop persistent/worsening symptoms, fever/chills, or lymphangitic streaking. Patient and his verbalized her understanding and they are in agreement with the plan. Medications: New cephalexin 500 mg PO QID 28 caps 0RF Coding Level of Care Code Est Pt Level 3 (80338) Diagnoses Cellulitis of toe of left foot L03.032
== END 2023-08-17 10:26 | disposition home or self-care (01) ==
PROVIDERS: PCP Internal Medicine; Visit Provider Physician Assistant Medical
DX: L03.032 Cellulitis of left toe (principal)
CPT/HCPCS: 99213

== ENCOUNTER 2023-12-21 07:50 | Outpatient (REF) | payer MEDICARE, SELFPAY ==
[2023-12-21 12:07] LABS: Alanine Aminotransferase 27 U/L (0-40); Albumin Level 3.9 g/dL (3.5-5.0); Alkaline Phosphatase 81 U/L (39-117); Anion Gap 9 (12-20); Aspartate Amino Transferase 32 U/L (5-37); Bilirubin Total 0.8 mg/dL (0.0-1.0); Blood Urea Nitrogen 24 mg/dL (9-16); Calcium 9.7 mg/dL (8.4-10.2); Carbon Dioxide 30 mmol/L (22-29); Chloride 103 mmol/L (96-108); Cholesterol 161 mg/dL (<200); Estimated Glomerular Filt Rate > 60; Glucose Fasting 92 mg/dL (60-99); HDL Cholesterol 51 mg/dL (>40); LDL Cholesterol Calculated 75 mg/dL (<100); Potassium 3.8 mmol/L (3.3-5.1); Sodium 138 mmol/L (135-145); Total Protein 7.2 g/dL (6.5-8.0); Triglycerides 176 mg/dL (<150)
[2023-12-21 12:33] LABS: PSA,Total (Free>4and<10) 9.09 ng/mL (0.00-4.00)
[2023-12-24 11:14] LABS: Free Prostate Spec Ag 2.2 ng/mL; Percent Free Prostate Spec Ag 23 % (calc) (>25); Prostate Specific Ag Total 9.4 ng/mL (< OR = 4.0)
== END 2023-12-21 07:51 | disposition home or self-care (01) ==
LOC: HO.HMGCLDS 07:50
PROVIDERS: PCP Internal Medicine; Visit Provider Internal Medicine
DX: R97.20 Elevated prostate specific antigen [PSA] (principal); E78.00 Pure hypercholesterolemia, unspecified; I10 Essential (primary) hypertension; Z12.5 Encounter for screening for malignant neoplasm of prostate
CPT/HCPCS: 36415; 80053; 80061; 84153; 84154

== ENCOUNTER 2023-12-25 09:37 | Outpatient (AMB) | payer MEDICARE, SELFPAY ==
[2023-12-25 09:50] VITALS: BP 126/72; PULSE 63; O2SAT 96; BMI 25.8
--- NOTE | 2023-12-25 09:50 | MHC.PC.OV ---
Vital Signs 12/25/23 09:50 Height 5 ft 11 in Weight 185 lb BMI 25.8 Intake Visit Reasons: SWV [id number] Allergies bee pollen [BEE STINGS] Allergy (Intermediate, Verified 08/17/23 09:18) PASSES OUT Tobacco use date assessed: 04/09/23 Dental Screening Dental Screen Date: 04/09/23 [facility] Medical History (Updated 06/28/23 @ 10:28 by Olivia Moon MD) COVID-19 vaccine series completed Depression Elevated cholesterol HTN (hypertension) History of carotid artery dissection Stroke Surgical History (Updated 06/28/23 @ 10:03 by RICHAR Katz) H/O rotator cuff surgery Hx of left inguinal hernia repair H/O colonoscopy Hx of cataract extraction History of open reduction and internal fixation (ORIF) procedure S/p bilateral carotid endarterectomy History of back surgery History of ankle surgery Family History Father No problems noted. Mother No problems noted. Social History Housing: House Are you a primary healthcare project manager to a significant other at home: No Do you presently have visiting nurse or other home services: No Patient Tobacco Use Status: Former Tobacco user Tobacco use type: Cigarette e-Cigarette/Vaping Use: Never Used service: Yes Current occupational status: retired Cognitive needs: No Hearing needs: No Vision needs: Yes Questionnaire PHQ-9 Over the last 2 weeks, how often have you been bothered by any of the following problems? 1. Little interest or pleasure in doing things: not at all 2. Feeling down, depressed, or hopeless: not at all 3. Trouble falling or staying asleep, or sleeping too much: not at all 4. Feeling tired or having little energy: not at all 5. Poor appetite or overeating: not at all 6. Feeling bad about yourself - or that you are a failure or have let yourself or your family down: not at all 7. Trouble concentrating on things, such as reading the newspaper or watching television: several days 8. Moving or speaking so slowly that other people could have noticed. Or the opposite - being so fidgety or restless that you have been moving around a lot more than usual: not at all 9. Thoughts that you would be better off or of hurting yourself in some way: not at all Total score: 1 Source: Developed by Drs. Nelson Campbell, Dina Booker, Chris Nash and colleagues, with an educational flaquita from [employer]. Thrive Questionnaire Date Thrive assessed: 12/29/22 AUDIT C Alcohol Use Questionnaire (AUDIT-C) 2. How many drinks containing alcohol do you have on a typical day when you are drinking?: 1 or 2 3. How often do you have six or more drinks on one occasion?: Never Total Score: 0 CAMI-7 AMB Questionnaire CAMI-7 Date CAMI - 7 assessed: 12/29/22 Source: Developed by Drs. Nelson Campbell, Dina Booker, Chris Nash and colleagues, with an educational flaquita from [employer]. Physical exam (Primary Care) Tobacco/Smoking Status: Tobacco use Status Tobacco use date assessed 04/09/23 11/16/23 20:25 Patient Tobacco Use Status Former Tobacco user 11/16/23 20:25 Tobacco use type Cigarette 11/16/23 20:25 e-Cigarette/Vaping Use Never Used 11/16/23 20:25 Thrive Assessment: Date of Thrive Assessment Date Thrive assessed 12/29/22 11/16/23 20:25 Coding
--- NOTE | 2023-12-25 09:55 | A.OFFVIS_ITS ---
Intake Vital Signs 12/25/23 09:50 12/25/23 09:57 Height 5 ft 11 in Weight 185 lb BMI 25.8 25.8 BP 126/72 Blood Pressure Location Rt brachial Position Sitting Pulse 63 Pulse Source Pulse Oximeter Pulse Oximetry (%) 96 Oxygen Delivery Method Room Air Intake Visit Reasons: V [id number] Allergies bee pollen [BEE STINGS] Allergy (Intermediate, Verified 12/25/23 09:55) PASSES OUT Medication List - Last Reconciled 12/25/23 by Olivia Moon MD aspirin 81 mg PO DAILY atenolol 25 mg PO DAILY cholecalciferol (vitamin D3) 125 mcg PO DAILY citalopram 20 mg PO DAILY diphenhydramine HCl (Benadryl) 25 mg PO BEDTIME PRN furosemide (Lasix) 20 mg PO DAILY hydrochlorothiazide 25 mg PO DAILY krill oil 500 mg PO DAILY simvastatin 40 mg PO BEDTIME HPI [facility] [place] [id number] HPI Details Initiated the conversation about Advanced Directives. Advanced Directives help? patients prepare for current and future decisions about their medical treatment? and place of care. Discussed with patient that it is a process where a patients? current condition and prognosis are reviewed, their wishes for information? regarding their illness are elicited, and likely medical dilemmas are presented? and options discussed. The form can be amended as needed, reviewed yearly and? make changes as needed IPPE/AWV ? year old presents? for her ? Annual? Wellness Visit, initial visit.? Medical / Social History Reviewed? Past Medical History ?Yes? . ? [place]? of Care / Care Team list updated ?Yes . ? Surgical/Hospitalization? History ?Yes . ? Current Medications? (including OTC and supplements) ?Yes . ? Family History ?Yes? . ? Tobacco? Control form ?Yes . ? AUDIT-C (Alcohol use) form? ?Yes . ? Illicit drug use in Social? History ?Yes . ? Current diagnosis of? depression? ?No ? Appropriate PHQ2/PHQ9? completed ?Yes . ? Data entered by ?Medical? Rent Collector and reviewed by provider ? Fall Risk ? Fall? History? Have you had any falls with? injury in the past year? ?No . ? Have you had two or more? falls in the past year? ?No . ? Fall Risk Assessment: ?No? falls in the past year . ? HRA filled out by? the patient, reviewed by Provider and scanned. ? IPPE/AWV ? Balance? Romberg? ?Yes . ? Tandem? walk ?Yes . ? Walk and? Turn ?Yes . ? Rise from? sit to stand ?Yes . ?Vision? Corrective? lens ?Yes ? Vision? screen ? Up-to-date, has an appointment [] for vision? screening and glaucoma screening ?Hearing? Whisper? test ?pass .? Initiated the conversation about Advanced Directives. Advanced Directives help? patients prepare for current and future decisions about their medical treatment? and place of care. Discussed with patient that it is a process where a patients? current condition and prognosis are reviewed, their wishes for information? regarding their illness are elicited, and likely medical dilemmas are presented? and options discussed. The form can be amended as needed, reviewed yearly and? make changes as needed Written? Plan?Completed. See Patient? Documents. [facility] Medical History (Updated 12/25/23 @ 10:52 by Olivia Moon MD) COVID-19 vaccine series completed Depression Elevated cholesterol HTN (hypertension) History of carotid artery dissection Stroke Surgical History H/O rotator cuff surgery Hx of left inguinal hernia repair H/O colonoscopy Hx of cataract extraction History of open reduction and internal fixation (ORIF) procedure S/p bilateral carotid endarterectomy History of back surgery History of ankle surgery Family History Father No problems noted. Mother No problems noted. Social History Housing: House Are you a primary managed care specialist to a significant other at home: No Do you presently have visiting nurse or other home services: No Patient Tobacco Use Status: Former Tobacco user Tobacco use type: Cigarette e-Cigarette/Vaping Use: Never Used service: Yes Current occupational status: retired Cognitive needs: No Hearing needs: No Vision needs: Yes Questionnaire Medicare Wellness Checkup What is your age?: 80 or older What gender do you identify with?: male During the past 4 weeks, how much have you been bothered by emotional problems such as feeling anxious, depressed, irritable, sad or downhearted, and blue?: not at all During the past 4 weeks, has your physical & emotional health limited your social activities with family, friends, neighbors, or groups?: not at all During the past 4 weeks, how much bodily pain have you generally had?: no pain During the past 4 weeks, was someone available to help you if you needed & wanted help?: no, not at all During the past 4 weeks, what was the hardest physical activity you could do for at least 2 minutes?: heavy Can you get to places out of walking distance without help? (For eg., can you travel alone on buses, taxis or drive your car?): Yes Can you go shopping for groceries or clothes without someone's help?: Yes Can you prepare your own meals?: Yes Can you do your housework without help?: Yes Because of any health problems, do you need the help of another person with your personal care needs such as eating, bathing, dressing or getting around the house?: No Can you handle your own money without help?: Yes During the past 4 weeks, how would you rate your health in general?: very good During the past 4 weeks how have things been going for you?: pretty well Are you having difficulties driving your car?: no Do you always fasten your seat belt when you are in a car?: yes, usually During past 4 weeks, have you been bothered by the following: never: Falling or dizzy when standing up, Sexual problems?, Trouble eating well?, Teeth or denture problems? and Problems using the telephone? and seldom: Tiredness or fatigue? Have you fallen 2 or more times in the past year?: No Are you afraid of falling?: No Are you a smoker?: no During the past 4 weeks, how many drinks of wine, beer, or other alcoholic beverages did you have?: 6-9 drinks per week Do you exercise for about 20 minutes 3 or more times a week?: yes, most of the time Have you been given information to help with the following?: no: Hazards in your house that might hurt you? and no: Keeping track of your medications? How often do you have trouble taking medicines the way you have been told to take them?: I always take medicine as prescribed How confident are you that you can control & manage most of your health problems?: very confident What is your race?: White Mini Mental State Exam (MMSE) Orientation What is the (year) (season) (date) (day) (month)?: year, season, date, day and month Where are we (state) (county) (town or city) (hospital) (floor)?: state, county, town or city, hospital/clinic and floor Registration Name of 3 unrelated objects clearly and slowly, then ask patient to repeat all 3 of them. (1st repeat determines score. Make sure they can repeat all three): object 1, object 2 and object 3 Attention & Calculation (CHOOSE ONE) Spell WORLD backwards (DLROW): 5 letters Recall Ask patient to repeat the 3 items from question #3.: object 1, object [address] 3 Language Show patient a wristwatch & ask what it is. Repeat for pencil.: watch and pencil Ask the patient to repeat the phrase 'No ifs, ands, or buts' after you.: correct Ask the patient to 'take a piece of paper with their right hand' 'fold paper in half' 'place paper on floor': take paper in right hand, fold paper in half and place paper on floor Print the sentence 'CLOSE YOUR EYES' on a piece. If patient actually closes eyes then score.: followed written direction Give patient a blank piece of paper & ask to write a sentence. Score if it contains a noun & verb.: sentence contains subject and verb Score Score: 29 Activity of Daily Living Bathing - sponge bath, tub bath or shower: receives no assistance (gets in/out by self, if usual bathing means Dressing - getting clothes from closets & drawers, including inner/outer garments & fasteners.: gets clothes & gets completely dressed without help Toileting - going to the 'toilet room' for urine/bowel elimination & cleaning self/arranging clothes: goes to toilet room, cleans self, arranges clothes without help Transfer: moves in & out of bed and chair without help (may use support object) Continence: controls urination/bowel movements completely by self Feeding: feeds self without help Total Score: 0 Information obtained from: patient Using telephone: independent Traveling: independent Shopping: independent Preparing meals: independent Housework: independent Taking medicine: independent Managing money: independent PHQ-9 Over the last 2 weeks, how often have you been bothered by any of the following problems? 1. Little interest or pleasure in doing things: not at all 2. Feeling down, depressed, or hopeless: not at all 3. Trouble falling or staying asleep, or sleeping too much: not at all 4. Feeling tired or having little energy: not at all 5. Poor appetite or overeating: not at all 6. Feeling bad about yourself - or that you are a failure or have let yourself or your family down: not at all 7. Trouble concentrating on things, such as reading the newspaper or watching television: several days 8. Moving or speaking so slowly that other people could have noticed. Or the opposite - being so fidgety or restless that you have been moving around a lot more than usual: not at all 9. Thoughts that you would be better off or of hurting yourself in some way: not at all Total score: 1 Depression Screening Interpretation: Negative Depression Screening Done: Yes 04814 - PHQ-9 Billing: Yes Source: Developed by Drs. Nelson Campbell, Dina Booker, Chris Nash and colleagues, with an educational flaquita from [employer]. Review of Systems Const All systems reviewed & are unremarkable except as noted in HPI and below Eyes Reports no additional complaints ENT Reports no additional complaints Card Reports no additional complaints Resp Reports no additional complaints GI Reports no additional complaints Reports no additional complaints Physical Exam Vital Signs: Last Vital Signs Pulse 63 12/25/23 09:50 BP 126/72 12/25/23 09:50 Pulse Ox 96 12/25/23 09:50 Oxygen Delivery Method Room Air 12/25/23 09:50 BMI result Body Mass Index 25.8 Const General: no acute distress HEENT Head: Yes normal to inspection Eyes General: appearance normal, both eyes and all related structures Neck Neck: Yes supple Resp Effort & Inspection: normal respiratory effort Auscultation: clear to auscultation bilaterally Cardio Rhythm: regular rhythm Heart sounds: S1 normal heart sound present and S2 normal heart sound present GI Inspection: Yes normal to inspection Palpation (GI): Soft to palpation Percussion: Yes normal to percussion Auscultation: normal bowel sounds Extrem General: Yes no clubbing, cyanosis or edema Assessment & Plan Assessment & Plan (1) Elevated PSA, less than 10 ng/ml: Comment: 6.2 asymptomatic,06/26, 9.2 12/26, refer to urology Code(s): R97.20 - Elevated prostate specific antigen [PSA] Plan: Referred to urology (2) Elevated cholesterol: Code(s): E78.00 - Pure hypercholesterolemia, unspecified Plan: Continue statin (3) HTN (hypertension): Code(s): I10 - Essential (primary) hypertension Plan: Continue current medications (4) Annual physical exam: Code(s): Z00.00 - Encounter for general adult medical examination without abnormal findings Plan: Well-balanced diet regular physical activity discussed with the patient Orders: Orders Comprehensive Holt. Panel Fast 1 Year E78.00 - Pure hypercholesterolemia, unspecified, I10 - Essential (primary) hypertension Complete Blood Count Auto Diff 1 Year E78.00 - Pure hypercholesterolemia, unspecified, I10 - Essential (primary) hypertension Lipid Panel 1 Year E78.00 - Pure hypercholesterolemia, unspecified, I10 - Essential (primary) hypertension Referrals Urology Referral R97.20 - Elevated prostate specific antigen [PSA] Medications: Discontinued furosemide (Lasix) Discontinued Reason: Duplicate 20 mg PO DAILY 30 tabs 0RF Quality Reporting (2019) Depression/Bipolar (159/160/161/177) PHQ-9: Total score: 1 Coding Level of Care Code Medicare Subsequent (G0439) Diagnoses Elevated PSA, less than 10 ng/ml R97.20 Elevated cholesterol E78.00 HTN (hypertension) I10 Annual physical exam Z00.00 CPT Codes Advance Care Planning - Advance Care Planning discussion: On file, no changes ([id number]) Advance Care Planning - Time spent: 1-15 minutes, on File ([id number]) Advance Care Planning Advance Care Planning discussion: On file, no changes Forms completed: Health Care Proxy Time spent: 1-15 minutes, on File
[2023-12-25 09:57] VITALS: BMI 25.8
== END 2023-12-25 11:26 | disposition home or self-care (01) ==
PROVIDERS: PCP Internal Medicine; Visit Provider Internal Medicine
DX: Z00.00 Encounter for general adult medical examination without abnormal findings (principal); R97.20 Elevated prostate specific antigen [PSA]; E78.00 Pure hypercholesterolemia, unspecified; I10 Essential (primary) hypertension

== ENCOUNTER → 2023-12-25 09:37 | Outpatient (BNVA) | payer MEDICARE, SELFPAY | PROVIDERS: PCP Internal Medicine; Visit Provider Internal Medicine ==

== ENCOUNTER 2024-01-29 13:52 | Outpatient (AMB) | payer MEDICARE, SELFPAY ==
--- NOTE | 2024-01-29 13:59 | A.OFFVIS_ITS ---
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 He is a patient of Dr. Moon. He presents with the following urologic conditions - elevated PSA Elevated PSA Is noting some weakness of stream 06/26 6.4, 12/26 9.4 F 23% Recommend start finasteride Given rapid PSA rise recommend biopsy [facility] Medical History (Updated 12/25/23 @ 10:52 by Olivia Moon MD) COVID-19 vaccine series completed Depression Elevated cholesterol HTN (hypertension) History of carotid artery dissection Stroke Surgical History H/O rotator cuff surgery Hx of left inguinal hernia repair H/O colonoscopy Hx of cataract extraction History of open reduction and internal fixation (ORIF) procedure S/p bilateral carotid endarterectomy History of back surgery History of ankle surgery Family History Father No problems noted. Mother No problems noted. Social History Housing: House Are you a primary child care lead teacher to a significant other at home: No Do you presently have visiting nurse or other home services: No Patient Tobacco Use Status: Former Tobacco user Tobacco use type: Cigarette e-Cigarette/Vaping Use: Never Used service: Yes Current occupational status: retired Cognitive needs: No Hearing needs: No Vision needs: Yes Review of Systems Const Denies chills and Denies fever(s) Card Reports no additional complaints and Denies syncope Resp Denies cough GI Denies abdominal pain and Denies heartburn Reports as per HPI and Denies change in libido Neuro Denies syncope Psych Denies change in libido Endo Denies change in libido Physical Exam Const General: cooperative, healthy appearing, comfortable and no acute distress Orientation/consciousness: patient oriented x3 HEENT Face and sinus: Yes normal facial exam Mouth: moist mucous membranes Neck Neck: Yes normal visual inspection, Yes full ROM and Yes trachea midline Chest Chest palpation & inspection: normal inspection of the chest Resp Effort & Inspection: normal respiratory effort, able to speak in complete sentences and no respiratory distress GI Inspection: Yes normal to inspection Back/Spine/Pelvis Cervical Spine: normal cervical lordosis Thoracic/Lumbar Spine: thoracic and lumbar spine normal to inspection Skin General skin exam: no rashes or lesions noted Neuro General: patient oriented x3, gait normal, tone normal and moves all extremities Extrem General: Yes normal to inspection and Yes capillary refill normal Results AMB Urinalysis, Automated UA Leukoctes 0 J Luis/uL Last Edit by Jarrell Voss CCM on 01/29/24 14:13 UA Nitrite Negative Last Edit by Jarrell Voss CCM on 01/29/24 14:13 UA Urobilinogen 0.2 mg/dL Last Edit by Jarrell Voss [facility] on 01/29/24 14:1 3 UA Protein 15 mg/dL Last Edit by Jarrell Voss [facility] on 01/29/24 14:13 UA pH 6.0 Last Edit by Jarrell Voss [facility] on 01/29/24 14:13 UA Blood 0 Octavio/uL Last Edit by Jarrell Voss [facility] on 01/29/24 14:13 UA Specific Union 1.020 Last Edit by Jarrell Voss CCM on 01/29/24 14: 13 UA Ketone Negative Last Edit by Jarrell Voss CCM on 01/29/24 14:13 UA Bilirubin 0 mg/dL Last Edit by Jarrell Voss [facility] on 01/29/24 14:13 UA Glucose 0 mg/dL Last Edit by Jarrell Voss [facility] on 01/29/24 14:13 Results Reviewed Results Reviewed: Laboratory Last Values Urine pH (Auto) 6.0 01/29/24 14:13 Specific Union (Auto) 1.020 01/29/24 14:13 Urine Protein (Auto) 15 mg/dL 01/29/24 14:13 Glucose (UA)(Auto) 0 mg/dL 01/29/24 14:13 Urine Ketones (Auto) Negative 01/29/24 14:13 Urine Blood (Auto) 0 Octavoi/uL 01/29/24 14:13 Urine Nitrite (Auto) Negative 01/29/24 14:13 Urine Bilirubin (Auto) 0 mg/dL 01/29/24 14:13 Urine Urobilinogen (Auto) 0.2 mg/dL 01/29/24 14:13 Leukocyte Esterase (Auto) 0 J Luis/uL 01/29/24 14:13 Assessment & Plan Assessment & Plan (1) Elevated PSA, less than 10 ng/ml: Comment: 6.2 asymptomatic,06/26, 9.2 12/26, refer to urology Code(s): R97.20 - Elevated prostate specific antigen [PSA] Category: Medical Plan Risks and benefits regarding trans rectal ultrasound with prostate biopsy were discussed. Options of continued surveillance, no treatment and biopsy were offered. The risks include but are not limited to, urinary tract infection, sepsis, difficulty urinating, bleeding into the rectum or bladder that requires intervention and transfusion,and failure to diagnose prostate cancer. The patient understands the options and the risks involved. They wish to proceed. Printed information was provided to ensure he remains off anticoagulation for the appropriate length of time. He may require cardiology or PCP clearance. An antibiotic will be administered prior to, and following the procedure Orders: Orders AMB Urinalysis Automated Today Z13.9 - Encounter for screening, unspecified Medications: New levofloxacin take 1 tablet day before procedure, 1 tablet day of procedure and 1 tablet day after procedure 500 mg PO daily 3 days 3 tabs 0RF R97.20 - Elevated prostate specific antigen [PSA] finasteride 5 mg PO DAILY 90 days 90 tabs 1RF R97.20 - Elevated prostate specific antigen [PSA] Patient Instructions: Imaging studies, laboratory and physical exam results were discussed and reviewed in detail. No major barriers to patient understanding were identified. An opportunity to ask questions regarding the treatment plan was provided. All questions were answered. The patient expressed understanding and agreement with the above treatment plan. The patient is aware they should contact our office by phone for worsening of their current condition or the appearance of new urologic symptoms. Compliance is encouraged with any medications and followup testing that is ordered. It is a privilege to participate in the urologic care of your patient. If you have any questions or concerns regarding treatment for the above conditions, or other urologic issues, please do not hesitate to contact me. The office telephone contact is [phone]. This note is constructed using voice recognition software. While every effort has been made to ensure accuracy public relations officer errors may have been included. Yours sincerely, Dr Mike West MD, [facility] - Urology Providers of Expert, Compassionate Care for the Genitourinary System Coding Level of Care Code New Pt Level 4 (44908) Diagnoses Elevated PSA, less than 10 ng/ml R97.20
== END 2024-01-29 14:44 | disposition home or self-care (01) ==
PROVIDERS: PCP Internal Medicine; Visit Provider Urology
DX: Z13.9 Encounter for screening, unspecified (principal); R97.20 Elevated prostate specific antigen [PSA]
CPT/HCPCS: 99204

== ENCOUNTER → 2024-01-29 13:52 | Outpatient (BNVA) | payer MEDICARE, SELFPAY | PROVIDERS: PCP Internal Medicine; Visit Provider Urology | DX: R97.20 Elevated prostate specific antigen [PSA] (principal); R39.12 Poor urinary stream | CPT/HCPCS: 81003; 99202 ==

== ENCOUNTER 2024-02-14 07:36 | Outpatient (REF) | payer MEDICARE, SELFPAY ==
[2024-02-14] MEDS: Lidocaine HCl 1 % MPF 5 ML VIAL 10 ML SUBCUT (08:46)
--- NOTE | 2024-02-14 14:06 | P.OP_ITS ---
Operative Note Operative Note Date of Service: 02/14/24 Narrative: Preoperative diagnosis: Elevated PSA Postoperative diagnosis: Elevated PSA Procedure: 1. transrectal ultrasound measurement of prostate 2. transrectal ultrasound-guided pudendal nerve block 3. transrectal ultrasound-guided prostate biopsy 12 core Surgeon: Dr. Mike West Anesthetic: 10cc 1% lidocaine Indications for procedure: Elevated PSA 9.4 23% Counselling: Technical aspects, risks and benefits of proposed procedure were discussed in full. All questions have been answered, written consent has been obtained and patient agrees to proceed. Procedure: The patient was brought into the procedure area and placed in a left lateral decubitus position. Patient identity confirmed. Perioperative antibiotics confirmed. Safety pause time out performed. HAILEY was performed to dilate rectal sphincter Iodine 10cc with 60 cc gel was placed per rectum to reduce infection risk using a catheter tip syringe. 8 Hz Luis rectal end-fire ultrasound probe was placed transrectally without difficulty. The prostate was visualized. Seminal vesicles were normal. Prostate margins were clearly demarcated. Bladder was seen superiorly. No cystic structures were noted No calcifications were noted at the surgical margin The prostate was otherwise heterogenous in nature The prostate was measured in 3 dimensions Prostatic Width: 5.0 cm Prostatic Height: 4.7 cm Urethral Length: 4.9 cm Total volume equals : 60 ml An ultrasound-guided pudendal nerve block was performed using a 22 gauge spinal needle in the sagittal plane. 4 cc of 1% lidocaine placed at the junction of each seminal vesicle and 2 cc placed at the apex of the prostate. A 12 core biopsy was performed with 6 cores each side using an 18 gauge prostate biopsy gun. Two cores each were taken at the prostate apex, mid and base on each side. Cores were spaced between lateral and medial aspects. Each core was examined as placed on specimen foam as part of quality assurance advisor to ensure a minimum 1 cm of length and minimal discontinuity. He tolerated the procedure well with minimal rectal bleeding. Blood pressure remained stable following procedure. He was able to ambulate to bathroom after 5 minutes. Printed instructions regarding antibiotic use and common adverse events from the procedure such as low-grade temperature, potential infection and bleeding were given. He understands to call the office or go to an emergency room should any of these events arise. Pathology: 12 core prostate biopsy. CPT code 68715: Transrectal ultrasound; this is a diagnostic test for evaluation of the prostate and surrounding structures, looking for abnormalities or suspicious areas worrisome for cancer CPT code 12753: Biopsy, prostate; needle or punch, single or multiple, any approach CPT code 59013: Ultrasonic guidance for needle placement (eg, biopsy, aspiration, injection, localization device), imaging supervision and interpretation
== END 2024-02-14 07:37 | disposition home or self-care (01) ==
LOC: HO.US 07:36
PROVIDERS: PCP Internal Medicine; Visit Provider Urology
DX: R97.20 Elevated prostate specific antigen [PSA] (principal)
CPT/HCPCS: 55700; 76942; 88305; 88344; J2003

== ENCOUNTER → 2024-02-14 07:36 | Outpatient (BNV) | payer MEDICARE, SELFPAY | PROVIDERS: PCP Internal Medicine; Visit Provider Urology | DX: R97.20 Elevated prostate specific antigen [PSA] (principal) | CPT/HCPCS: 55700; 76872; 76942 ==

== ENCOUNTER 2024-03-13 12:59 | Outpatient (AMB) | payer MEDICARE, SELFPAY ==
--- NOTE | 2024-03-13 12:59 | A.OFFVIS_ITS ---
Intake Visit Reasons: Prostate biopsy results Intake Note: Patient is present for prostate biopsy results Urology Medication:finasteride Antibiotic Allergy:none Blood Thinner:aspirin Overnight Houseperson Required: No Allergies bee pollen [BEE STINGS] Allergy (Intermediate, Verified 03/13/24 13:00) PASSES OUT HPI Comments Details: It was a pleasant male. He is a patient of Dr. Moon. He presents with the following urologic conditions - elevated PSA - lower urinary tract symptoms Telemedicine Evaluation 15 min Consultation [employer] Phuc Video Discussion of biopsy 60 g prostate Negative biopsy Remain on finasteride Six-month follow-up PSA Elevated PSA Is noting some weakness of stream 06/26 6.4, 12/26 9.4 F 23% PCPT 15% high grade Recommend start finasteride Given rapid PSA rise recommend biopsy [facility] Medical History (Updated 12/25/23 @ 10:52 by Olivia Moon MD) COVID-19 vaccine series completed Depression Elevated cholesterol HTN (hypertension) History of carotid artery dissection Stroke Surgical History H/O rotator cuff surgery Hx of left inguinal hernia repair H/O colonoscopy Hx of cataract extraction History of open reduction and internal fixation (ORIF) procedure S/p bilateral carotid endarterectomy History of back surgery History of ankle surgery Family History Father No problems noted. Mother No problems noted. Social History Housing: House Are you a primary clinical care coordinator to a significant other at home: No Do you presently have visiting nurse or other home services: No Patient Tobacco Use Status: Former Tobacco user Tobacco use type: Cigarette e-Cigarette/Vaping Use: Never Used service: Yes Current occupational status: retired Cognitive needs: No Hearing needs: No Vision needs: Yes Review of Systems Const All systems reviewed & are unremarkable except as noted in HPI and below Reports no additional complaints Resp Reports no additional complaints GI Reports no additional complaints Reports as per HPI Musc Reports no additional complaints Physical Exam Telemedicine evaluation Appropriate responses Regular breathing rate and rhythm HEENT Head: Yes normal to inspection Ears: hearing grossly normal bilaterally Eyes General: appearance normal, both eyes and all related structures Neck Neck: Yes normal visual inspection Chest Chest palpation & inspection: normal inspection of the chest Resp Effort & Inspection: normal respiratory effort and able to speak in complete sentences Telehealth Telehealth Telehealth Platform: Fairphone Location of provider rendering services: practice address Location of patient: address on file Patient Identification confirmed using: Name, : Yes Telehealth method: video Patient verbally consented to treatment: Yes Patient verbally consented to billing insurance company: Yes Patient informed of any privacy concerns related to visit: Yes Minutes spent on Phone/Video with Pt.: 15 Assessment & Plan Assessment & Plan (1) Elevated PSA, less than 10 ng/ml: Comment: 6.2 asymptomatic,06/26, 9.2 12/26, refer to urology Code(s): R97.20 - Elevated prostate specific antigen [PSA] Category: Medical Plan Six-month follow-up PSA Orders: Orders PSA,Total (Free>4and<10) 6 Months R97.20 - Elevated prostate specific antigen [PSA] Patient Instructions: Imaging studies, laboratory and physical exam results were discussed and reviewed in detail. No major barriers to patient understanding were identified. An opportunity to ask questions regarding the treatment plan was provided. All questions were answered. The patient expressed understanding and agreement with the above treatment plan. The patient is aware they should contact our office by phone for worsening of their current condition or the appearance of new urologic symptoms. Compliance is encouraged with any medications and followup testing that is ordered. It is a privilege to participate in the urologic care of your patient. If you have any questions or concerns regarding treatment for the above conditions, or other urologic issues, please do not hesitate to contact me. The office telephone contact is [phone]. This note is constructed using voice recognition software. While every effort has been made to ensure accuracy pan devulcanizer helper errors may have been included. Yours sincerely, Dr Mike West MD, [place] [facility] - Urology Providers of Expert, Compassionate Care for the Genitourinary System Coding Level of Care Code Tele Est Pt Level 3 (66753) Diagnoses Elevated PSA, less than 10 ng/ml R97.20
== END 2024-03-13 13:40 | disposition home or self-care (01) ==
LOC: HO.HUSH 12:59
PROVIDERS: PCP Internal Medicine; Visit Provider Urology
DX: R97.20 Elevated prostate specific antigen [PSA] (principal)
CPT/HCPCS: 99213

== ENCOUNTER 2024-03-31 15:56 | Outpatient (AMB) | payer MEDICARE, SELFPAY ==
[2024-03-31 16:10] VITALS: BP 140/78; PULSE 66; TEMP 36.8; O2SAT 96; BMI 25.8
--- NOTE | 2024-03-31 16:10 | AM.OFFWIN_ITS ---
Intake Vital Signs 03/31/24 16:10 Height 5 ft 11 in Weight 185 lb BMI 25.8 BP 140/78 H Blood Pressure Location Lt brachial Position Sitting Pulse 66 Pulse Source Pulse Oximeter Temp 98.3 F Temp Source Oral Pulse Oximetry (%) 96 Oxygen Delivery Method Room Air Intake Visit Reasons: EP Flu symptoms Intake Note: pt is here for cough, congestion and body aches Patient Tobacco Use Status: Former Tobacco user Allergies bee pollen [BEE STINGS] Allergy (Intermediate, Verified 03/31/24 16:11) PASSES OUT Do you need a note to return to daycare/school/sports/work: No HPI HPI Comments History of Present Illness Details 83 y/o male patient who presents to the walk in clinic with c/o Flu like symptoms for the past 2-3 days now. Reports Generalized malaise, headaches, cough and body chills. He tested negative for COVID yesterday with home test. [facility] Medical History (Updated 03/31/24 @ 17:00 by Yuko Fair NP) Acute respiratory disease COVID-19 vaccine series completed Depression Elevated cholesterol HTN (hypertension) History of carotid artery dissection Stroke Surgical History H/O rotator cuff surgery Hx of left inguinal hernia repair H/O colonoscopy Hx of cataract extraction History of open reduction and internal fixation (ORIF) procedure S/p bilateral carotid endarterectomy History of back surgery History of ankle surgery Family History Father No problems noted. Mother No problems noted. Social History Housing: House Are you a primary acute care nurse to a significant other at home: No Do you presently have visiting nurse or other home services: No Patient Tobacco Use Status: Former Tobacco user Tobacco use type: Cigarette e-Cigarette/Vaping Use: Never Used service: Yes Current occupational status: retired Cognitive needs: No Hearing needs: No Vision needs: Yes Review of Systems Const All systems reviewed & are unremarkable except as noted in HPI and below Physical Exam Vital Signs: Last Vital Signs Temp 98.3 F 03/31/24 16:10 Pulse 66 03/31/24 16:10 BP 140/78 H 03/31/24 16:10 Pulse Ox 96 03/31/24 16:10 Oxygen Delivery Method Room Air 03/31/24 16:10 BMI result Body Mass Index 25.8 Const General: cooperative and no acute distress; No comfortable Orientation/consciousness: patient oriented x3 HEENT Head: Yes normocephalic Ears: external ears normal and TM abnormal with fluid behind the TM bilateral General nose exam: Normal external nose present, Abnormal mucous membranes and turbinates present boggy and Nasal discharge present Face and sinus: Yes sinuses nontender Mouth: moist mucous membranes Throat: Yes uvula midline Resp Effort & Inspection: normal respiratory effort and able to speak in complete sentences Auscultation: clear to auscultation bilaterally, no crackles, no rales, no rhonchi and no wheezes Cardio Heart sounds: S1 normal heart sound present and S2 normal heart sound present Neuro General: patient oriented x3 Assessment & Plan Assessment & Plan (1) Acute respiratory disease: Code(s): J06.9 - Acute upper respiratory infection, unspecified Plan: Ordered SARs Acetaminophen for pain relief Rest and hydrate well with plenty of fluids. Orders: Orders SARS-CoV2/FLU/RSV Today R09.89 - Other specified symptoms and signs involving the circulatory and respiratory systems Coding Level of Care Code Est Pt Level 3 (94392) Diagnoses Acute respiratory disease J06.9 Time Spent (min) 15
== END 2024-03-31 17:00 | disposition home or self-care (01) ==
PROVIDERS: PCP Internal Medicine; Visit Provider Nurse Practitioner Family
DX: J06.9 Acute upper respiratory infection, unspecified (principal)

== ENCOUNTER 2024-03-31 15:56 | Outpatient (REF) | payer MEDICARE, SELFPAY ==
[2024-04-01 11:27] LABS: Influenza A PCR POSITIVE (Negative); Influenza B PCR NEGATIVE (Negative); Resp Syncy Virus RNA Qual PCR NEGATIVE (Negative); SARS COV2 PCR INHOUSE NEGATIVE (Negative)
== END 2024-03-31 15:57 | disposition home or self-care (01) ==
LOC: HO.LAB 15:56
PROVIDERS: Nurse Practitioner Family; PCP Internal Medicine
DX: J06.9 Acute upper respiratory infection, unspecified (principal); R09.89 Other specified symptoms and signs involving the circulatory and respiratory systems
CPT/HCPCS: 0241U; 99212

== ENCOUNTER 2024-09-04 07:06 | Outpatient (REF) | payer MEDICARE, SELFPAY ==
[2024-09-04 11:15] LABS: PSA,Total (Free>4and<10) 8.24 ng/mL (0.00-4.00)
[2024-09-08 14:19] LABS: Free Prostate Spec Ag 1.0 ng/mL; Percent Free Prostate Spec Ag 14 % (calc) (>25)
== END 2024-09-04 07:07 | disposition home or self-care (01) ==
LOC: HO.HMGCLDS 07:06
PROVIDERS: PCP Internal Medicine; Visit Provider Urology
DX: R97.20 Elevated prostate specific antigen [PSA] (principal); Z12.5 Encounter for screening for malignant neoplasm of prostate
CPT/HCPCS: 36415; 84153; 84154

== ENCOUNTER 2024-09-12 13:09 | Outpatient (AMB) | payer MEDICARE, SELFPAY ==
--- OUTSIDE RECORDS SUMMARY | 2024-09-12 13:13 | XMS_ITS | Patient Health Record ---
Author Organization [facility] Address [address] [place] [id number] Care Team Providers Care Hazardous Waste Technician Name Role Phone Estevan Angela MD Primary Care Provider UnavailNelson Mcnair Unavailable [phone] Allergies Allergen (clinical drug ingredient) Drug/Non Drug Allergy documented on EMR Reaction Allergy Type Onset Date Status amoxicillin Amoxicillin Unknown Drug Allergy Act francisco Reason For Referral No Information Medications Medication SIG (Take, Route, Frequency, Duration) Notes Start Date End Date Status Multi Vitamin/Minerals Active Atenolol 25mg Active Lutein 20mg Active Vitamin D-3 2000mg A ctive Simvastatin 40mg Act francisco Colyte with Flavor Packs 227 .1 GM as directed Orally as directed for 1 dose 05/23/2013 Active [place] 3 Active Benadryl Active hydroCHLOROthiazide 25mg Active CeleXA 20mg Active Fexofenadine HCl 180mg prn Active Aspirin 325mg Active Fluticasone Propionate prn Active Problems Problem Type SNOMED Code ICD Code Onset Dates Problem Status W/U Status Risk Notes Problem Colon cancer screening (521334325) Colon cancer screening (V76.51) Active confirmed Problem History of adenomatous polyp of colon (700497779) History of adenomatous polyp of colon (V12.72) Active confirmed Problem Long-term current use of aspirin (472665982043939 ) Aspirin long-term use (V58.66) Active confirmed Plan Of Treatment Future Test Test Name Order Date COLONOSCOPY 05/23/2013 Insurance Providers Payer Name Payer Address Payer Phone Subscriber Number Group Number Insured Name Patient Relationship to Insured Coverage Start Date Coverage End Date MEDICARE OF [place] [address] [place] [id number] ANNA MARIE SERVIN JR. Self - patient is the insured [employer] ATT[employer] CLAIMS [address] [place] [phone] [id number] ANNA MARIE SERVIN JR. Self - patient is the insured Medical (General) History Medical History History ICD Code Tubular adenomas removed in the and 2003--colonoscopies in 1994, 1997 and 2008 were negative Internal Hemorrhoids Diverticulosis hypertension hyperlipidemia macular degeneration CVA 09/25/2011--trouble speaking--comple tely resolved Denies [place],DM,Lung disease,renal disease L4/L5 Disc-had an epidural--seeing Dr. Morro connors at [facility] in 06/2013 Surgical History Surgery Date(Month/Year) right leg surgery-plate,screws and stapl es 10/24/2011 carotid endarterectomy-left side 012 carotid endarterectomy-right side 2010 Hernia repair-left inguinal
--- NOTE | 2024-09-12 13:24 | MHC.OFFVIS ---
Intake Visit Reasons: 6m/PSA(psa?) Intake Note: Patient is present for 6 mo follow up with PSA Labs 09/04/24: Total PSA 8.24,Free PSA 1.0, %Free PSA 14, Total PSA 7.1 Urology Medication:finasteride Antibiotic Allergy:none Blood Thinner:aspirin Registered Nurse Cardiovascular Icu Required: No Accompanied by: Self / Same As Patient Allergies bee pollen (BEE STINGS) Allergy (Intermediate, Verified 09/12/24 13:25) PASSES OUT HPI Comments Details: It was a pleasant male. He is a patient of Dr. Moon. He presents with the following urologic conditions - elevated PSA - lower urinary tract symptoms Six-month follow-up PSA 7.1 14% Accompanied by Discussed his Brennan suman 2006 with super director summer sessions Continue surveillance Elevated PSA Is noting some weakness of stream 06/26 6.4, 12/26 9.4 F 23% PCPT 15% high grade Recommend start finasteride Prostate biopsy 02/25 60 g prostate negative PFSH Medical History (Updated 03/31/24 @ 17:17 by Yuko Fair NP) Cough Acute respiratory disease COVID-19 vaccine series completed Depression Elevated cholesterol HTN (hypertension) History of carotid artery dissection Stroke Surgical History H/O rotator cuff surgery Hx of left inguinal hernia repair H/O colonoscopy Hx of cataract extraction History of open reduction and internal fixation (ORIF) procedure S/p bilateral carotid endarterectomy History of back surgery History of ankle surgery Family History Father No problems noted. Mother No problems noted. Social History Housing: House Are you a primary memory care program director to a significant other at home: No Do you presently have visiting nurse or other home services: No Patient Tobacco Use Status: Former Tobacco user Tobacco use type: Cigarette e-Cigarette/Vaping Use: Never Used service: Yes Current occupational status: retired Cognitive needs: No Hearing needs: No Vision needs: Yes Review of Systems Const Denies chills and Denies fever(s) Card Reports no additional complaints and Denies syncope Resp Denies cough GI Denies abdominal pain and Denies heartburn Reports as per HPI and Denies change in libido Neuro Denies syncope Psych Denies change in libido Endo Denies change in libido Physical Exam Const General: cooperative, healthy appearing, comfortable and no acute distress Orientation/consciousness: patient oriented x3 HEENT Face and sinus: Yes normal facial exam Mouth: moist mucous membranes Neck Neck: Yes normal visual inspection, Yes full ROM and Yes trachea midline Chest Chest palpation & inspection: normal inspection of the chest Resp Effort & Inspection: normal respiratory effort, able to speak in complete sentences and no respiratory distress GI Inspection: Yes normal to inspection Back/Spine/Pelvis Cervical Spine: normal cervical lordosis Thoracic/Lumbar Spine: thoracic and lumbar spine normal to inspection Skin General skin exam: no rashes or lesions noted Neuro General: patient oriented x3, gait normal, tone normal and moves all extremities Extrem General: Yes normal to inspection and Yes capillary refill normal Assessment & Plan Assessment & Plan (1) Elevated PSA, less than 10 ng/ml: Comment: 6.2 asymptomatic,06/26, 9.2 12/26, refer to urology Code(s): R97.20 - Elevated prostate specific antigen [PSA] Category: Medical Plan Six-month follow-up Medications: Refilled finasteride 5 mg PO DAILY 90 tabs 1RF 90 days R97.20 - Elevated prostate specific antigen [PSA] Patient Instructions: This note is constructed using voice recognition software. While every effort has been made to ensure accuracy construction project coordinator errors may have been included. Imaging studies, laboratory and physical exam results were discussed and reviewed in detail. No major barriers to patient understanding were identified. An opportunity to ask questions regarding the treatment plan was provided. All questions were answered. The patient expressed understanding and agreement with the above treatment plan. The patient is aware they should contact our office by phone for worsening of their current condition or the appearance of new urologic symptoms. Compliance is encouraged with any medications and followup testing that is ordered. It is a privilege to participate in the urologic care of your patient. If you have any questions or concerns regarding treatment for the above conditions, or other urologic issues, please do not hesitate to contact me. The office telephone contact is [phone]. Sincerely, Dr Mike West MD, [place] [facility] - Urology Compassionate Specialist Care for the Genitourinary System Coding Level of Care Code Est Pt Level 3 (90489) Complex EM visit Add On G2211 Diagnoses Elevated PSA, less than 10 ng/ml R97.20
== END 2024-09-12 13:51 | disposition home or self-care (01) ==
LOC: HO.HUSH 13:10
PROVIDERS: PCP Internal Medicine; Visit Provider Urology
DX: R97.20 Elevated prostate specific antigen [PSA] (principal); Z13.9 Encounter for screening, unspecified
CPT/HCPCS: 99213; G2211

== ENCOUNTER → 2024-09-12 13:09 | Outpatient (BNVA) | payer MEDICARE, SELFPAY | PROVIDERS: PCP Internal Medicine; Visit Provider Urology | DX: R97.20 Elevated prostate specific antigen [PSA] (principal) | CPT/HCPCS: 81003; 99212 ==

== ENCOUNTER 2024-12-22 07:36 | Outpatient (REF) | payer MEDICARE, SELFPAY ==
--- OUTSIDE RECORDS SUMMARY | 2024-12-22 07:39 | XMS_ITS | Patient Health Record ---
Author Organization [facility] Address [address] [place] [id number] Care Team Providers Care Threading Machine Feeder Automatic Name Role Phone Estevan Angela MD Primary Care Provider UnavailNelson Mcnair Unavailable [phone] Allergies Allergen (clinical drug ingredient) Drug/Non Drug [...] 227 .1 GM as directed Orally as directed; Duration: 1 dose 05/23/2013 Active [place] 3 Active Benadryl Active hydroCHLOROthiazide 25mg Active CeleXA 20mg Active Fexofenadine HCl 180mg prn Active Aspirin 325mg Active Fluticasone Propionate prn Active Problems Problem Type SNOMED Code ICD Code Onset Dates Problem Status W/U Status Risk Notes Problem Colon cancer screening (111930925) Colon cancer screening (V76.51) Active confirmed Problem History of adenomatous polyp of colon (611257014) History of adenomatous polyp of colon (V12.72) Active confirmed Problem Long-term current use of aspirin (809834194673371 ) Aspirin long-term use (V58.66) Active confirmed Plan Of Treatment Future Test Test Name Order Date COLONOSCOPY 05/23/2013 Insurance Providers Payer Name Payer Address Payer Phone Subscriber Number Group Number Insured Name Patient Relationship to Insured Coverage Start Date Coverage End Date MEDICARE OF [place] [address] [place] [id number] [phone] [id number] ANNA MARIE SERVIN JR. Self - patient is the insured [employer] ATTN CLAIMS [address] [place] [phone] [id number] MALATHI MCLAIN ELVERSAMUEL Self - patient is the insured Medical (General) History Medical History History ICD Code Tubular adenomas removed in the and 2003--colonoscopies in 1994, 1997 and 2008 were negative Internal Hemorrhoids Diverticulosis hypertension hyperlipidemia macular degeneration CVA 09/25/2011--trouble speaking--comple tely resolved Denies CT,DM,Lung disease,renal disease L4/L5 Disc-had an epidural--seeing Dr. Morro connors at [facility] in 06/2013 Surgical History Surgery Date(Month/Year) right leg surgery-plate,screws and stapl es 10/24/2011 carotid endarterectomy-left side 012 carotid endarterectomy-right side 2010 Hernia repair-left inguinal
[2024-12-22 10:27] LABS: MANUAL DIFF FLAG NO
[2024-12-22 10:41] LABS: Hematocrit 40.9 % (42.0-52.0); Hemoglobin 14.1 g/dl (14.0-18.0); Imm Gran Abs Auto 0.05 X10*3/uL (0.00-0.03); Imm Gran Pct Auto 0.9 % (0.0-0.4); Lymphocytes Absolute Auto 1.6 X10*3/uL (1.2-4.9); Mean Corpuscular HGB Conc 34.5 g/dl (31.0-36.0); Mean Corpuscular Hemoglobin 33.1 pg (27.0-33.0); Mean Corpuscular Volume 96.0 fL (80.0-98.0); NRBC Abs Auto 0.000 X10*3/uL (0.0-0.012); NRBC Pct Auto 0.0 /100WBC (0.0-0.2); Platelet Count 167 X10*3/uL (160-400); Red Blood Count 4.26 X10*6/uL (4.60-5.80); White Blood Count 5.8 X10*3/uL (4.8-10.8)
[2024-12-22 10:54] LABS: Alanine Aminotransferase 23 U/L (0-40); Albumin Level 4.1 g/dL (3.5-5.0); Alkaline Phosphatase 84 U/L (39-117); Anion Gap 12 (12-20); Aspartate Amino Transferase 36 U/L (5-37); Blood Urea Nitrogen 21 mg/dL (9-16); Calcium 8.9 mg/dL (8.4-10.2); Carbon Dioxide 28 mmol/L (22-29); Chloride 101 mmol/L (96-108); Cholesterol 158 mg/dL (<200); Estimated Glomerular Filt Rate 60; HDL Cholesterol 46 mg/dL (>40); Potassium 3.9 mmol/L (3.3-5.1); Sodium 137 mmol/L (135-145); Total Protein 7.0 g/dL (6.5-8.0); Triglycerides 185 mg/dL (<150)
== END 2024-12-22 07:37 | disposition home or self-care (01) ==
LOC: HO.HMGCLDS 07:36
PROVIDERS: PCP Internal Medicine; Visit Provider Internal Medicine
DX: I10 Essential (primary) hypertension (principal); E78.00 Pure hypercholesterolemia, unspecified
CPT/HCPCS: 36415; 80053; 80061; 85025

== ENCOUNTER 2024-12-25 09:25 | Outpatient (AMB) | payer MEDICARE, SELFPAY ==
[2024-12-25 09:31] VITALS: BP 128/60; PULSE 54; RESP 17; TEMP 36.7; O2SAT 99; BMI 26.1
--- NOTE | 2024-12-25 09:31 | AM.OFFVISMDC ---
Intake Vital Signs 12/25/24 09:31 Height 5 ft 11 in Weight 187 lb BMI 26.1 BP 128/60 Blood Pressure Location Rt brachial Position Sitting Respiration 17 Pulse 54 Pulse Source Pulse Oximeter Temp 98.1 F Temp Source Oral Pulse Oximetry (%) 99 Oxygen Delivery Method Room Air Intake Visit Reasons: AWV Intake Note: Pt is here today for AWV. Allergies bee pollen (BEE STINGS) Allergy (Intermediate, Verified 12/25/24 09:40) PASSES OUT Medication List - Last Reconciled 12/25/24 by Olivia Moon MD aspirin 81 mg PO DAILY atenolol 25 mg PO DAILY cholecalciferol (vitamin D3) 125 mcg PO DAILY citalopram 20 mg PO DAILY diphenhydramine HCl (Benadryl) 25 mg PO BEDTIME PRN finasteride 5 mg PO DAILY 90 days hydrochlorothiazide 25 mg PO DAILY krill oil 500 mg PO DAILY simvastatin 40 mg PO BEDTIME HPI AWV HPI Details Initiated the conversation about Advanced Directives. Advanced Directives help? patients prepare for current and future decisions about their medical treatment? and place of care. Discussed with patient that it is a process where a patients? current condition and prognosis are reviewed, their wishes for information? regarding their illness are elicited, and likely medical dilemmas are presented? and options discussed. The form can be amended as needed, reviewed yearly and? make changes as needed HPI Comments History of Present Illness Details IPPE/AWV ? year old presents? for her ? Annual? Wellness Visit, initial visit.? Medical / Social History Reviewed? Past Medical History ?Yes? . ? [place]? of Care / Care Team list updated ?Yes . ? Surgical/Hospitalization? History ?Yes . ? Current Medications? (including OTC and supplements) ?Yes . ? Family History ?Yes? . ? Tobacco? Control form ?Yes . ? AUDIT-C (Alcohol use) form? ?Yes . ? Illicit drug use in Social? History ?Yes . ? Current diagnosis of? depression? ?No ? Appropriate PHQ2/PHQ9? completed ?Yes . ? Data entered by ?Medical? Estate Planning Paralegal and reviewed by provider ? Fall Risk ? Fall? History? Have you had any falls with? injury in the past year? ?No . ? Have you had two or more? falls in the past year? ?No . ? Fall Risk Assessment: ?No? falls in the past year . ? HRA filled out by? the patient, reviewed by Provider and scanned. ? IPPE/AWV ? Balance? [place]? ?Yes . ? Tandem? walk ?Yes . ? Walk and? Turn ?Yes . ? Rise from? sit to stand ?Yes . ?Vision? Corrective? lens ?Yes ? Vision? screen ? Up-to-date, has an appointment [] for vision? screening and glaucoma screening ?Hearing? Whisper? test ?pass .? Initiated the conversation about Advanced Directives. Advanced Directives help? patients prepare for current and future decisions about their medical treatment? and place of care. Discussed with patient that it is a process where a patients? current condition and prognosis are reviewed, their wishes for information? regarding their illness are elicited, and likely medical dilemmas are presented? and options discussed. The form can be amended as needed, reviewed yearly and? make changes as needed Written? Plan?Completed. See Patient? Documents. [facility] Medical History (Updated 12/25/24 @ 15:09 by Olivia Moon MD) Annual physical exam Rotator cuff tear arthropathy of right shoulder Elevated PSA, less than 10 ng/ml Screening for colon cancer Cough Acute respiratory disease COVID-19 vaccine series completed Depression Elevated cholesterol HTN (hypertension) History of carotid artery dissection Stroke Surgical History (Updated 12/25/24 @ 10:03 by Olivia Moon MD) Status post carotid endarterectomy H/O rotator cuff surgery Hx of left inguinal hernia repair H/O colonoscopy Hx of cataract extraction History of open reduction and internal fixation (ORIF) procedure S/p bilateral carotid endarterectomy History of back surgery History of ankle surgery Family History Father No problems noted. Mother No problems noted. Social History Housing: House Are you a primary critical care transport nurse to a significant other at home: No Do you presently have visiting nurse or other home services: No Patient Tobacco Use Status: Former Tobacco user Tobacco use type: Cigarette e-Cigarette/Vaping Use: Never Used service: Yes Current occupational status: retired Cognitive needs: No Hearing needs: No Vision needs: Yes Questionnaire Medicare Wellness Checkup What is your age?: 80 or older What gender do you identify with?: male During the past 4 weeks, how much have you been bothered by emotional problems such as feeling anxious, depressed, irritable, sad or downhearted, and blue?: not at all During the past 4 weeks, has your physical & emotional health limited your social activities with family, friends, neighbors, or groups?: not at all During the past 4 weeks, how much bodily pain have you generally had?: very mild pain During the past 4 weeks, was someone available to help you if you needed & wanted help?: no, not at all During the past 4 weeks, what was the hardest physical activity you could do for at least 2 minutes?: heavy Can you get to places out of walking distance without help? (For eg., can you travel alone on buses, taxis or drive your car?): Yes Can you go shopping for groceries or clothes without someone's help?: Yes Can you prepare your own meals?: Yes Can you do your housework without help?: Yes Because of any health problems, do you need the help of another person with your personal care needs such as eating, bathing, dressing or getting around the house?: No Can you handle your own money without help?: Yes During the past 4 weeks, how would you rate your health in general?: very good During the past 4 weeks how have things been going for you?: pretty well Are you having difficulties driving your car?: no Do you always fasten your seat belt when you are in a car?: yes, usually During past 4 weeks, have you been bothered by the following: never: Falling or dizzy when standing up, Sexual problems?, Trouble eating well?, Teeth or denture problems? and Problems using the telephone? and seldom: Tiredness or fatigue? Have you fallen 2 or more times in the past year?: No Are you afraid of falling?: No Are you a smoker?: no During the past 4 weeks, how many drinks of wine, beer, or other alcoholic beverages did you have?: 6-9 drinks per week Do you exercise for about 20 minutes 3 or more times a week?: yes, most of the time Have you been given information to help with the following?: no: Hazards in your house that might hurt you? and no: Keeping track of your medications? How often do you have trouble taking medicines the way you have been told to take them?: I always take medicine as prescribed How confident are you that you can control & manage most of your health problems?: very confident What is your race?: White Mini Mental State Exam (MMSE) Orientation What is the (year) (season) (date) (day) (month)?: year, season, date, day and month Where are we (state) (county) (town or city) (hospital) (floor)?: state, county, town or city, hospital/clinic and floor Registration Name of 3 unrelated objects clearly and slowly, then ask patient to repeat all 3 of them. (1st repeat determines score. Make sure they can repeat all three): object 1, object 2 and object 3 Attention & Calculation (CHOOSE ONE) Spell WORLD backwards (DLROW): 5 letters Recall Ask patient to repeat the 3 items from question #3.: object 1, object 2 and object 3 Language Show patient a wristwatch & ask what it is. Repeat for pencil.: watch and pencil Ask the patient to repeat the phrase 'No ifs, ands, or buts' after you.: correct Ask the patient to 'take a piece of paper with their right hand' 'fold paper in half' 'place paper on floor': take paper in right hand, fold paper in half and place paper on floor Print the sentence 'CLOSE YOUR EYES' on a piece. If patient actually closes eyes then score.: followed written direction Give patient a blank piece of paper & ask to write a sentence. Score if it contains a noun & verb.: sentence contains subject and verb Score Score: 29 PHQ-9 Over the last 2 weeks, how often have you been bothered by any of the following problems? 1. Little interest or pleasure in doing things: not at all 2. Feeling down, depressed, or hopeless: not at all 3. Trouble falling or staying asleep, or sleeping too much: not at all 4. Feeling tired or having little energy: not at all 5. Poor appetite or overeating: not at all 6. Feeling bad about yourself - or that you are a failure or have let yourself or your family down: not at all 7. Trouble concentrating on things, such as reading the newspaper or watching television: several days 8. Moving or speaking so slowly that other people could have noticed. Or the opposite - being so fidgety or restless that you have been moving around a lot more than usual: not at all 9. Thoughts that you would be better off or of hurting yourself in some way: not at all Total score: 1 Depression Screening Interpretation: Negative Depression Screening Done: Yes 53361 - PHQ-9 Billing: Yes Source: Developed by Drs. Nelson Campbell, Dina Booker, Chris Nash and colleagues, with an educational flaquita from [employer]. Review of Systems Const All systems reviewed & are unremarkable except as noted in HPI and below Eyes Reports no additional complaints ENT Reports no additional complaints Card Reports no additional complaints GI Reports no additional complaints Reports no additional complaints Musc Reports no additional complaints Physical Exam Vital Signs: Last Vital Signs Temp 98.1 F 12/25/24 09:31 Pulse 54 12/25/24 09:31 Resp 17 12/25/24 09:31 BP 128/60 12/25/24 09:31 Pulse Ox 99 12/25/24 09:31 Oxygen Delivery Method Room Air 12/25/24 09:31 BMI result Body Mass Index 26.1 Const General: well developed HEENT Head: Yes normal to inspection Neck Neck: Yes supple Resp Effort & Inspection: normal respiratory effort Auscultation: clear to auscultation bilaterally Cardio Rhythm: regular rhythm Heart sounds: S1 normal heart sound present and S2 normal heart sound present GI Inspection: Yes normal to inspection Palpation (GI): Soft to palpation Percussion: Yes normal to percussion Extrem General: Yes no clubbing, cyanosis or edema Assessment & Plan Assessment & Plan (1) Elevated PSA, less than 10 ng/ml: Comment: 6.2 asymptomatic,06/26, 9.2 12/26, refer to urology Code(s): R97.20 - Elevated prostate specific antigen [PSA] Plan: Follow-up by Urology (2) Status post carotid endarterectomy: Comment: 2011, Dr. Barreto, f/u with [facility] vascular surg, q 2 years, last 2024 Code(s): Z98.890 - Other specified postprocedural states Plan: Follow-up with the vascular surgeon every 2 year (3) Elevated cholesterol: Code(s): E78.00 - Pure hypercholesterolemia, unspecified Plan: Continue statin (4) Annual physical exam: Code(s): Z00.00 - Encounter for general adult medical examination without abnormal findings Plan: Well-balanced diet regular physical activity discussed with the patient (5) HTN (hypertension): Code(s): I10 - Essential (primary) hypertension Plan: Continue atenolol Orders: Orders PSA,Total (Free>4and<10) 03/06/25 R97.20 - Elevated prostate specific antigen [PSA] Complete Blood Count Auto Diff 1 Year E55.9 - Vitamin D deficiency, unspecified, E78.00 - Pure hypercholesterolemia, unspecified, I10 - Essential (primary) hypertension Lipid Panel 1 Year E55.9 - Vitamin D deficiency, unspecified, E78.00 - Pure hypercholesterolemia, unspecified, I10 - Essential (primary) hypertension Vitamin D 25-OH Total 1 Year E55.9 - Vitamin D deficiency, unspecified, E78.00 - Pure hypercholesterolemia, unspecified, I10 - Essential (primary) hypertension Comprehensive Strawberry. Panel Fast 1 Year E55.9 - Vitamin D deficiency, unspecified, E78.00 - Pure hypercholesterolemia, unspecified, I10 - Essential (primary) hypertension UA w Microscopic 1 Year E55.9 - Vitamin D deficiency, unspecified, E78.00 - Pure hypercholesterolemia, unspecified, I10 - Essential (primary) hypertension TSH reflex Free T4 1 Year E55.9 - Vitamin D deficiency, unspecified, E78.00 - Pure hypercholesterolemia, unspecified, I10 - Essential (primary) hypertension Quality Reporting (2020) Depression/Bipolar (159/160/161/177) PHQ-9: Total score: 1 Coding Level of Care Code Medicare Subsequent (G0439) Diagnoses Elevated PSA, less than 10 ng/ml R97.20 Status post carotid endarterectomy Z98.890 Elevated cholesterol E78.00 Annual physical exam Z00.00 HTN (hypertension) I10 CPT Codes Advance Care Planning - Advance Care Planning discussion: On file, no changes ([id number]) Advance Care Planning - Time spent: 1-15 minutes, on File ([id number]) Additional Codes PHQ-9 - 76662 - PHQ-9 Billing: Yes ([id number]) Advance Care Planning Advance Care Planning discussion: On file, no changes Forms completed: Health Care Proxy Time spent: 1-15 minutes, on File
--- OUTSIDE RECORDS SUMMARY | 2024-12-25 10:32 | XMS_ITS | Patient Health Record ---
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 Name Role Phone Estevan Angela MD Primary Care Provider UnavailNelson Mcnair Unavailable [phone] Allergies Allergen (clinical drug ingredient) Drug/Non Drug [...] as directed; Duration: 1 dose 05/23/2013 Active [place] 3 Active Benadryl Active hydroCHLOROthiazide 25mg Active CeleXA 20mg Active Fexofenadine HCl 180mg prn Active Aspirin 325mg Active Fluticasone Propionate prn Active Problems Problem Type SNOMED Code ICD Code Onset Dates Problem Status W/U Status Risk Notes Problem Colon cancer screening (550761019) Colon cancer screening (V76.51) Active confirmed Problem History of adenomatous polyp of colon (071958624) History of adenomatous polyp of colon (V12.72) Active confirmed Problem Long-term current use of aspirin ([id number] ) Aspirin long-term use (V58.66) Active confirmed Plan Of Treatment Future Test Test Name Order Date COLONOSCOPY 05/23/2013 Insurance Providers Payer Name Payer Address Payer Phone Subscriber Number Group Number Insured Name Patient Relationship to Insured Coverage Start Date Coverage End Date MEDICARE OF [place] [address] [place] [id number] ANNA MARIE SERVIN JR. Self - patient is the insured [employer] ATT[employer] CLAIMS [address] [place] [phone] [id number] MALATHI MCLAIN ELVERSAMUEL Self - patient is the insured Medical (General) History Medical History History ICD Code Tubular adenomas removed in the and 2003--colonoscopies in 1994, 1997 and 2008 were negative Internal Hemorrhoids Diverticulosis hypertension hyperlipidemia macular degeneration CVA 09/25/2011--trouble speaking--comple tely resolved Denies [place],DM,Lung disease,renal disease L4/L5 Disc-had an epidural--seeing Dr. Morro connors at [facility] in 06/2013 Surgical History Surgery Date(Month/Year) right leg surgery-plate,screws and stapl es 10/24/2011 carotid endarterectomy-left side 012 carotid endarterectomy-right side 2010 Hernia repair-left inguinal
== END 2024-12-25 10:19 | disposition home or self-care (01) ==
LOC: HO.HMCC 09:26
PROVIDERS: PCP Internal Medicine; Visit Provider Internal Medicine
DX: Z00.00 Encounter for general adult medical examination without abnormal findings (principal); R97.20 Elevated prostate specific antigen [PSA]; E78.00 Pure hypercholesterolemia, unspecified; I10 Essential (primary) hypertension; Z98.890 Other specified postprocedural states

== ENCOUNTER → 2024-12-25 09:25 | Outpatient (BNVA) | payer MEDICARE, SELFPAY | PROVIDERS: PCP Internal Medicine; Visit Provider Internal Medicine | DX: Z00.00 Encounter for general adult medical examination without abnormal findings (principal); R97.20 Elevated prostate specific antigen [PSA]; E78.00 Pure hypercholesterolemia, unspecified; I10 Essential (primary) hypertension; E55.9 Vitamin D deficiency, unspecified; Z98.890 Other specified postprocedural states | CPT/HCPCS: 96127 ==